=== PATIENT | male | born 1940 | race Caucasian/White ===

== ENCOUNTER → 2021-03-26 | Outpatient (CLI) | payer MEDICARE | END | disposition home or self-care (01) | DX: E78.2 Mixed hyperlipidemia (principal) ==

== ENCOUNTER 2021-11-07 19:37 | Inpatient (IN) | payer MEDICARE ==
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
[2021-11-07 21:28] LABS: Basophils # (A) 0.1 k/uL (0-0.2); Basophils % (A) 1 %; Eosinophils # (A) 0.1 k/uL (0-0.7); Eosinophils % (A) 1 %; HGB 16.7 gm/dL (13.0-17.5); Lymphocytes % (A) 15 %; MCH 31.6 pg (25.0-35.0); MCHC 33.5 g/dL (31.0-37.0); MCV 94.4 fL (80.0-100.0); Mean Platelet Volume 7.7; Monocytes # (A) 0.6 k/uL (0-1.0); Monocytes % (A) 8 %; Neutrophils # (A) 5.1 k/uL (1.3-7.7); Neutrophils % (A) 73 %; Platelet Count 336 k/uL (150-450); RBC 5.29 m/uL (4.30-5.90); RDW 12.4 % (11.5-15.5)
[2021-11-07 21:44] LABS: Albumin 4.2 g/dL (3.5-5.0); C Reactive Protein 8.8 mg/dL (<1.0); Calcium 9.4 mg/dL (8.4-10.2); Total Bilirubin 1.1 mg/dL (0.2-1.3); Total Protein 8.5 g/dL (6.3-8.2)
--- NOTE | 2021-11-07 21:49 | XR ---
EXAMINATION TYPE: XR chest 1V portable DATE OF EXAM: 11/07/2021 COMPARISON: NONE HISTORY: Shortness of breath. TECHNIQUE: Single frontal view of the chest is obtained. FINDINGS: . Bilateral diffuse moderate patchy airspace opacities. No pleural effusion, or pneumothor ax seen. The cardiac silhouette size is enlarged. CABG and left pacemaker seen. The osseous struct ures are intact. IMPRESSION: Bilateral infiltrates.
[2021-11-07 21:50] LABS: Magnesium 2.7 mg/dL (1.6-2.3); Potassium 4.6 mmol/L (3.5-5.1)
[2021-11-07] MEDS ORDERED: NALOXONE 0.4 MG/ML 1 ML VIAL IV PRN (21:55)
[2021-11-07] MEDS ORDERED: SODIUM CHLORIDE 0.9% 500 ML 500 ML IV ONE (22:02)
[2021-11-07 22:06] LABS: Partial Thromboplastin Time 24.5 sec (22.0-30.0); Prothrombin Time 10.5 sec (9.0-12.0)
[2021-11-07] MEDS ORDERED: ENOXAPARIN 100 MG/ML SYRINGE SQ STA (22:11)
[2021-11-07] MEDS: SODIUM CHLORIDE 0.9% 1,000 ML IV SCH (22:54)
--- NOTE | 2021-11-08 01:06 | US ---
EXAMINATION TYPE: US venous doppler duplex LE DATE OF EXAM: 11/08/2021 12:48 AM COMPARISON: NONE CLINICAL HISTORY: leg swelling. Patient states he has had blood clots in the past. Bilateral leg swel ling SIDE PERFORMED: Bilateral TECHNIQUE: The lower extremity deep venous system is examined utilizing real time linear array sonog socorro with graded compression, doppler sonography and color-flow sonography. VESSELS IMAGED: Common Femoral Vein Deep Femoral Vein Greater Saphenous Vein * Femoral Vein Popliteal Vein Small Saphenous Vein * Proximal Calf Veins (* superficial vessels) Right Leg: Negative for DVT Left Leg: There appears to be thrombus within the left mid portion of the popliteal vein. IMPRESSION: No evidence of deep vein thrombosis in the right leg. 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
[2021-11-08 07:19] LABS: Glucose,Whole Blood 89 mg/dL (75-99)
[2021-11-08 09:08] LABS: Basophils # (A) 0.03 X 10*3/uL (0.00-0.10); Basophils % (A) 0.4 %; Eosinophils % (A) 1.2 %; HCT 44.2 % (39.6-50.0); HGB 14.7 g/dL (13.0-17.0); Immature Grans, Automated 1.1 %; Lymphocytes # (A) 1.26 X 10*3/uL (0.90-5.00); Lymphocytes % (A) 14.8 %; MCHC 33.3 g/dL (32.0-37.0); MCV 93.2 fL (80.0-97.0); Monocytes # (A) 1.07 X 10*3/uL (0.20-1.00); Monocytes % (A) 12.5 %; NRBC Per 100 WBC 0 /100 WBCS (0.0-0.0); Neutrophils # (A) 5.98 X 10*3/uL (1.80-7.70); Platelet Count 316 X 10*3/uL (140-440); RBC 4.74 X 10*6/uL (4.40-5.60); WBC 8.53 X 10*3/uL (4.50-10.00)
[2021-11-08 09:28] LABS: Albumin 3.3 g/dL (3.8-4.9); Albumin/Globulin Ratio 1.06 (1.60-3.17); Bilirubin, Conjugated 0.21 mg/dL (0.20-0.40); Bilirubin,Unconjugated 0.19 mg/dL (0.20-1.00); C Reactive Protein 10.5 mg/dL (0.00-0.80); Globulin 3.1 g/dL (1.6-3.3); Total Bilirubin 0.4 mg/dL (0.30-1.20); Total Protein 6.4 g/dL (6.2-8.2)
[2021-11-08 09:29] LABS: Anion Gap 14.4 mmol/L (10.00-18.00); BUN/Creat Ratio 32.33 Ratio (12.00-20.00); Blood Urea Nitrogen 58.2 mg/dL (9.0-27.0); Calcium 8.5 mg/dL (8.7-10.3); Carbon Dioxide 19.6 mmol/L (20.0-27.5); Magnesium 2.7 mg/dL (1.5-2.4); Non-African American GFR(CKD) 34.5 (60.0-200.0); Potassium 4.3 mmol/L (3.5-5.5)
[2021-11-08] MEDS: DEXAMETHASONE SOD PHOSPHATE 10 MG/ML 1 ML VIAL IVP SCH (10:05)
[2021-11-08] MEDS: APIXABAN 5 MG TAB PO SCH ×2 (10:33→20:15)
[2021-11-08] MEDS: ASCORBIC ACID 500 MG TAB PO SCH (10:33)
[2021-11-08] MEDS: ZINC SULFATE 220 MG CAP PO SCH (10:33)
[2021-11-08] MEDS: CHOLECALCIFEROL 25 MCG (1000 IU) TABLET PO SCH (10:33)
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
[2021-11-08] MEDS: SODIUM CHLORIDE 0.9% 1,000 ML IV SCH ×2 (13:43→20:16)
[2021-11-08] MEDS: METOPROLOL SUCCINATE (ER) 50 MG TAB.ER.24H PO SCH (20:15)
[2021-11-08] MEDS ORDERED: lisinopriL 10 MG TAB PO SCH (21:30)
[2021-11-09] MEDS: ASCORBIC ACID 500 MG TAB PO SCH (09:14)
[2021-11-09] MEDS: ZINC SULFATE 220 MG CAP PO SCH (09:14)
[2021-11-09] MEDS: CHOLECALCIFEROL 25 MCG (1000 IU) TABLET PO SCH (09:14)
[2021-11-09] MEDS: APIXABAN 5 MG TAB PO SCH ×2 (09:14→21:31)
[2021-11-09] MEDS: DEXAMETHASONE SOD PHOSPHATE 10 MG/ML 1 ML VIAL IVP SCH (09:14)
[2021-11-09 09:51] LABS: African American GFR (CKD) 54.2 (60.0-200.0); Albumin 3.4 g/dL (3.8-4.9); Anion Gap 14.4 mmol/L (10.00-18.00); BUN/Creat Ratio 32.64 Ratio (12.00-20.00); Blood Urea Nitrogen 45.7 mg/dL (9.0-27.0); Calcium 9.2 mg/dL (8.7-10.3); Carbon Dioxide 18.6 mmol/L (20.0-27.5); Globulin 3.4 g/dL (1.6-3.3); Magnesium 2.6 mg/dL (1.5-2.4); Non-African American GFR(CKD) 46.8 (60.0-200.0); Potassium 4.4 mmol/L (3.5-5.5); Total Bilirubin 0.4 mg/dL (0.30-1.20); Total Protein 6.8 g/dL (6.2-8.2)
--- NOTE | 2021-11-09 10:50 | P.PN ---
Subjective Progress Note Date: 11/09/21 Principal diagnosis: COVID-19 pneumonia This is an 81-year-old gentleman who is extremely hard of hearing. He has a history of hypertension, hyperlipidemia, permanent pacemaker implantation, previous open heart surgery. He also has a three-week history of nausea, vomiting, generalized weakness and shortness of breath. His oxygen saturations dropped to 81-85% on room air while at home. He presented here to the emergency room for the same. Chest x-ray shows bilateral diffuse moderate patchy airspace opacities. No pleural effusion. No pneumothorax. EKG reveals a paced rhythm. Doppler lower extremity revealed thrombus in the left midportion popliteal vein. White count 8.5. Hemoglobin 14.7. Platelets 316. D-dimer 3.6. Lymphocytes 1.26. Sodium 138. Potassium 4.3. Creatinine 1.8. GFR 34.5. BUN 58. Magnesium 2.7. AST 170. ALT 144. LDH 420. C-reactive protein 10.5. Pro- calcitonin 0.18. The patient is seen today in consultation on the regular medical floor. He is up ambulating in his room. Awake and alert in no acute distress. He is requiring 2 L/m per nasal cannula. He's been afebrile. Hemodynamically stable. He's been initiated on vitamin supplements. The patient is seen today for 2021 in follow-up on the regular medical floor. He is currently resting comfortably in bed. Awake and alert in no acute distress. He is maintaining O2 saturation in the low 90s on 4 L high flow nasal cannula. He's been afebrile. Hemodynamically stable. Sodium 138. Potassium 4.4. The 146. Creatinine 1.4. Glucose 117. AST 150. ALT 183. He remains on Eliquis, Decadron, vitamin supplements. Objective - Vital Signs Vital signs: Vital Signs Temp 97.5 F L 11/09/21 10:00 Pulse 66 11/09/21 10:00 Resp 18 11/09/21 10:00 BP 125/78 11/09/21 10:00 Pulse Ox 92 L 11/09/21 10:00 Intake & Output 11/08/21 11/09/21 11/09/21 18:59 06:59 18:59 Intake Total 400 Balance 400 Intake: Oral 400 Other: # Voids 4 - Exam GENERAL EXAM: Alert, extremely hard of hearing, 81-year-old male patient, on 4 L nasal cannula, comfortable in no apparent distress. HEAD: Normocephalic. EYES: Normal reaction of pupils, equal size. NOSE: Clear with pink turbinates. THROAT: No erythema or exudates. NECK: No masses, no JVD. CHEST: No chest wall deformity. LUNGS: Equal air entry with crackles in the bilateral bases. CVS: S1 and S2 normal with no audible murmur, regular paced rhythm. ABDOMEN: No hepatosplenomegaly, normal bowel sounds, no guarding or rigidity. SPINE: No scoliosis or deformity SKIN: No rashes CENTRAL NERVOUS SYSTEM: No focal deficits, tone is normal in all 4 extremities. EXTREMITIES: There is no peripheral edema. No clubbing, no cyanosis. Peripheral pulses are intact. - Labs CBC & Chem 7: 11/08/21 05:15 11/09/21 05:25 Labs: Abnormal Lab Results - Last 24 Hours (Table) 11/09/21 Range/Units 05:25 Carbon Dioxide 18.6 L (20.0-27.5) mmol/L BUN 45.7 H (9.0-27.0) mg/dL Est GFR (CKD-EPI)AfAm 54.2 L (60.0-200.0) Est GFR (CKD-EPI)NonAf 46.8 L (60.0-200.0) BUN/Creatinine Ratio 32.64 H (12.00-20.00) Ratio Glucose 117 H (70-110) mg/dL Magnesium 2.6 H (1.5-2.4) mg/dL AST 150 H (14-35) U/L ALT 183 H (10-49) U/L Albumin 3.4 L (3.8-4.9) g/dL Globulin 3.4 H (1.6-3.3) g/dL Albumin/Globulin Ratio 1.00 L (1.60-3.17) g/dL Assessment and Plan Assessment: 1 Acute hypoxic respiratory failure secondary to acute COVID-19 pneumonia. Not vaccinated. Outside the window for Remdesivir. Not qualifying for Baricitinib. 2 Acute left lower extremity DVT, suspect secondary to above, initiated on Eliquis 3 Transaminitis suspect secondary to CoVID infection 4 Acute renal failure suspect secondary to dehydration and is 5 Elevated inflammatory markers secondary to COVID-19 infection is 6 Hypertension 7 History of open heart surgery, details are not available 8 Permanent pacemaker implantation 9 Hyperlipidemia Plan: The patient was seen and evaluated Labs reviewed Anticoagulated with Eliquis Continue Decadron, vitamin supplements Titrate the FiO2 as tolerated Follow-up chest x-ray and labs in a.m. Possibly home in the a.m. May need home oxygen We'll continue to follow I, the cosigning physician, performed a history & physical examination of the patient. Lungs sounds with coarse crackles in the bilateral bases. Maintaining O2 saturations in the 90s on 4 L/m per nasal cannula. I discussed the assessment and plan of care with my nurse practitioner, Hannah Marcelino. I attest to the above note as dictated by her. I have personally seen and examined the patient, performed the documentation and the assessment and plan as written. Number of minutes spent on the visit: 10.
--- NOTE | 2021-11-09 12:15 | P.PN ---
Subjective This is a pleasant 81 years old male with past medical history of hypertension Presents because of dyspnea. Patient states for the last 3 weeks he has nausea with little vomiting but with diarrhea as well He is been coughing a lot no lid try and Last week he starts feeling really week. The last 2 days and yesterday he was noticed that his pulse ox. In this coming low less than 89 and this morning was 81-82% so he decided to come to emergency room. He denies chest pain, no headache or weakness or numbness He denies smoking, alcohol or illicit drugs Patient on the presentation is hypoxic with oxygen saturation 88% on room air and 92% on 2 L oxygen, tachypneic 20-22, afebrile. Left showing unremarkable CBC, INR D-dimer elevated 3.6 Creatinine elevated 2.0 Dear enzymes mildly elevated with AST 234 and ALT 154, bilirubin is normal 1.1 CRP is elevated 8.8, Coronavirus detected Chest x-ray: Bilateral infiltrate and patchy opacities EKG paced rhythm 11/09/2021 Patient sitting in chair not in respiratory distress, no chest pain or dyspnea while at rest. His oxygen requirements today went up to 4 L/m with saturation 92%. Labs today showing creatinine improved 1.4, liver enzymes trending down, Patient remains on Eliquis 10 mg started yesterday after Doppler of the leg came back positive for left DVT. Also on dexamethasone 6 mg daily, multiple vitamins, we going to lower the fluid to 40-50 L per minute. Objective - Vital Signs Vital signs: Vital Signs Temp 97.5 F L 11/09/21 10:00 Pulse 66 11/09/21 10:00 Resp 18 11/09/21 10:00 BP 125/78 11/09/21 10:00 Pulse Ox 92 L 11/09/21 10:00 Intake & Output 11/08/21 11/09/21 11/09/21 18:59 06:59 18:59 Intake Total 400 Balance 400 Intake: Oral 400 Other: # Voids 4 - Exam GENERAL: The patient is alert and oriented x3, not in any acute distress. Well developed, well nourished. HEENT: Pupils are round and equally reacting to light. EOMI. No scleral icterus. No conjunctival pallor. Normocephalic, atraumatic. No pharyngeal erythema. No thyromegaly. CARDIOVASCULAR: S1 and S2 present. No murmurs, rubs, or gallops. PULMONARY: Chest is clear to auscultation, no wheezing or crackles. ABDOMEN: Soft, nontender, nondistended, normoactive bowel sounds. No palpable organomegaly. MUSCULOSKELETAL: No joint swelling or deformity. EXTREMITIES: No cyanosis, clubbing, or pedal edema. NEUROLOGICAL: Gross neurological examination did not reveal any focal deficits. SKIN: No rashes. no petechiae. - Labs CBC & Chem 7: 11/08/21 05:15 11/09/21 05:25 Labs: Abnormal Lab Results - Last 24 Hours (Table) 11/09/21 Range/Units 05:25 Carbon Dioxide 18.6 L (20.0-27.5) mmol/L BUN 45.7 H (9.0-27.0) mg/dL Est GFR (CKD-EPI)AfAm 54.2 L (60.0-200.0) Est GFR (CKD-EPI)NonAf 46.8 L (60.0-200.0) BUN/Creatinine Ratio 32.64 H (12.00-20.00) Ratio Glucose 117 H (70-110) mg/dL Magnesium 2.6 H (1.5-2.4) mg/dL AST 150 H (14-35) U/L ALT 183 H (10-49) U/L Albumin 3.4 L (3.8-4.9) g/dL Globulin 3.4 H (1.6-3.3) g/dL Albumin/Globulin Ratio 1.00 L (1.60-3.17) g/dL Assessment and Plan Assessment: Bilateral Covid pneumonia Acute hypoxic respiratory failure Increased inflammatory markers Acute left leg DVT Hypertension Acute kidney injury Elevated d-dimer Plan: This is a pleasant 81 years old male who presents with covid pneumonia Continue with dexamethasone Continue with vitamin C, vitamin D and zinc Pulmonary consult she is on Eliquis therapeutic dose 10 mg twice a day hold lisinopril, continue with IV fluid, check urine analysis and the bladder scan Check Doppler of the lower extremity Labs and medication were reviewed.. Continue same treatment. Continue with symptomatic treatment. Resume home medication. Monitor lytes and vitals. DVT and GI prophylaxis. Further recommendations as per clinical course of the patient DVT prophylaxis: Eliquis GI Prophylaxis: Pepcid PT/OT: Pending Prognosis is guarded
[2021-11-09] MEDS: SODIUM CHLORIDE 0.9% 1,000 ML IV SCH (14:49)
[2021-11-09] MEDS: METOPROLOL SUCCINATE (ER) 50 MG TAB.ER.24H PO SCH (21:30)
[2021-11-10] MEDS: APIXABAN 5 MG TAB PO SCH ×2 (08:19→21:15)
[2021-11-10] MEDS: ASCORBIC ACID 500 MG TAB PO SCH (08:19)
[2021-11-10] MEDS: CHOLECALCIFEROL 25 MCG (1000 IU) TABLET PO SCH (08:19)
[2021-11-10] MEDS: DEXAMETHASONE SOD PHOSPHATE 10 MG/ML 1 ML VIAL IVP SCH (08:19)
[2021-11-10] MEDS: ZINC SULFATE 220 MG CAP PO SCH (08:19)
--- NOTE | 2021-11-10 08:23 | XR ---
EXAMINATION TYPE: XR chest 1V portable DATE OF EXAM: 11/10/2021 COMPARISON: Chest x-ray 11/07/2021 HISTORY: Covid pneumonia TECHNIQUE: Single frontal view of the chest is obtained. FINDINGS: Patient is post median sternotomy. Generators present in the left pectoral region, there a re leads in the right atrium and ventricle. Retrocardiac lucency is consistent with hiatal hernia wit h partial intrathoracic stomach. No evident pneumothorax or pleural effusion. Patchy density is prese nt in the bilateral lungs. There is some improvement in aeration, lung volume. Bones are unchanged. C ardiac mediastinal silhouette is stable. Patient is rotated. IMPRESSION: Correlate for pneumonia, follow-up recommended
--- NOTE | 2021-11-10 11:32 | P.PN ---
Subjective Progress Note Date: 11/10/21 Principal diagnosis: COVID-19 pneumonia This is an 81-year-old gentleman who is extremely hard of hearing. He has a history of hypertension, hyperlipidemia, permanent pacemaker implantation, previous open heart surgery. He also has a three-week history of nausea, vomiting, generalized weakness and shortness of breath. His oxygen saturations dropped to 81-85% on room air while at home. He presented here to the emergency room for the same. Chest x-ray shows bilateral diffuse moderate patchy airspace opacities. No pleural effusion. No pneumothorax. EKG reveals a paced rhythm. Doppler lower extremity revealed thrombus in the left midportion popliteal vein. White count 8.5. Hemoglobin 14.7. Platelets 316. D-dimer 3.6. Lymphocytes 1.26. Sodium 138. Potassium 4.3. Creatinine 1.8. GFR 34.5. BUN 58. Magnesium 2.7. AST 170. ALT 144. LDH 420. C-reactive protein 10.5. Pro- calcitonin 0.18. The patient is seen today in consultation on the regular medical floor. He is up ambulating in his room. Awake and alert in no acute distress. He is requiring 2 L/m per nasal cannula. He's been afebrile. Hemodynamically stable. He's been initiated on vitamin supplements. The patient is seen today for 2021 in follow-up on the regular medical floor. He is currently resting comfortably in bed. Awake and alert in no acute distress. He is maintaining O2 saturation in the low 90s on 4 L high flow nasal cannula. He's been afebrile. Hemodynamically stable. Sodium 138. Potassium 4.4. The 146. Creatinine 1.4. Glucose 117. AST 150. ALT 183. He remains on Eliquis, Decadron, vitamin supplements. The patient is seen today 11/10/2021 in follow-up on the regular medical floor. He is currently sitting up in a chair at bedside. Awake and alert in no acute distress. He is quite hard of hearing. He does admit to breathing easier today. He is feeling quite a bit better. He is maintaining O2 saturations between 89 and 90% on 5 L high flow nasal cannula. He's been afebrile. Hemodynamically stable. Chest x-ray continues to show patchy densities bilaterally. There is some improvement in aeration and lung volume. Retrocardiac lucency is consistent with hiatal hernia with partial intrathoracic stomach. No evidence of pneumothorax or pleural effusions. He is continued on Decadron, Eliquis, vitamin supplements. Objective - Vital Signs Vital signs: Vital Signs Temp 97.9 F 11/10/21 10:00 Pulse 68 11/10/21 10:00 Resp 18 11/10/21 10:00 BP 153/88 11/10/21 10:00 Pulse Ox 89 L 11/10/21 10:00 Intake & Output 11/09/21 11/10/21 11/10/21 18:59 06:59 18:59 Intake Total 320 320 Balance 320 320 Intake: Intake, IV Titration 320 320 Amount Sodium Chloride 0.9% 1, 320 320 000 ml @ 40 mls/hr IV . Q24H [facility] Rx#:[id number] Other: Voiding Method Toilet Urinal # Voids 2 - Exam GENERAL EXAM: Alert, extremely hard of hearing, 81-year-old male patient, on 5 L nasal cannula, comfortable in no apparent distress. HEAD: Normocephalic. EYES: Normal reaction of pupils, equal size. NOSE: Clear with pink turbinates. THROAT: No erythema or exudates. NECK: No masses, no JVD. CHEST: No chest wall deformity. LUNGS: Equal air entry with crackles in the bilateral bases. CVS: S1 and S2 normal with no audible murmur, regular paced rhythm. ABDOMEN: No hepatosplenomegaly, normal bowel sounds, no guarding or rigidity. SPINE: No scoliosis or deformity SKIN: No rashes CENTRAL NERVOUS SYSTEM: No focal deficits, tone is normal in all 4 extremities. EXTREMITIES: There is no peripheral edema. No clubbing, no cyanosis. Peripheral pulses are intact. - Labs CBC & Chem 7: 11/08/21 05:15 11/09/21 05:25 Assessment and Plan Assessment: 1 Acute hypoxic respiratory failure secondary to acute COVID-19 pneumonia. Not vaccinated. Outside the window for Remdesivir. Not qualifying for Baricitinib. 2 Acute left lower extremity DVT, suspect secondary to above, initiated on Eliq uis 3 Transaminitis suspect secondary to CoVID infection 4 Acute renal failure suspect secondary to dehydration and is 5 Elevated inflammatory markers secondary to COVID-19 infection is 6 Hypertension 7 History of open heart surgery, details are not available 8 Permanent pacemaker implantation 9 Hyperlipidemia Plan: The patient was seen and evaluated Chest x-ray reviewed, showing some improvement Stable and on 5 L nasal cannula Anticoagulated with Eliquis Continue Decadron, vitamin supplements Titrate the FiO2 as tolerated Will need home oxygen We'll continue to follow I, the cosigning physician, performed a history & physical examination of the patient. Lungs sounds with coarse crackles in the bilateral bases. Maintaining O2 saturations in the 90s on 5 L/m per nasal cannula. I discussed the assessment and plan of care with my nurse practitioner, Hannah Marcelino. I attest to the above note as dictated by her. I have personally seen and examined the patient, performed the documentation and the assessment and plan as written. Number of minutes spent on the visit: 10.
--- NOTE | 2021-11-10 12:01 | P.PN ---
Subjective This is a pleasant 81 years old male with past medical history of hypertension Presents because of dyspnea. Patient states for the last 3 weeks he has nausea with little vomiting but with diarrhea as well He is been coughing a lot no lid try and Last week he starts feeling really week. The last 2 days and yesterday he was noticed that his pulse ox. In this coming low less than 89 and this morning was 81-82% so he decided to come to emergency room. He denies chest pain, no headache or weakness or numbness He denies smoking, alcohol or illicit drugs Patient on the presentation is hypoxic with oxygen saturation 88% on room air and 92% on 2 L oxygen, tachypneic 20-22, afebrile. Left showing unremarkable CBC, INR D-dimer elevated 3.6 Creatinine elevated 2.0 Dear enzymes mildly elevated with AST 234 and ALT 154, bilirubin is normal 1.1 CRP is elevated 8.8, Coronavirus detected Chest x-ray: Bilateral infiltrate and patchy opacities EKG paced rhythm 11/09/2021 Patient sitting in chair not in respiratory distress, no chest pain or dyspnea while at rest. His oxygen requirements today went up to 4 L/m with saturation 92%. Labs today showing creatinine improved 1.4, liver enzymes trending down, Patient remains on Eliquis 10 mg started yesterday after Doppler of the leg came back positive for left DVT. Also on dexamethasone 6 mg daily, multiple vitamins, we going to lower the fluid to 40-50 L per minute. 11/10/2021 Genital bit tired today. He is eating well, his vitals are stable, he requires 5 L per minute of oxygen to keep saturation 90-92%. Chest x-ray showing pneumonia. With some improvement Remains on dexamethasone, Eliquis 10 mg, multiple vitamins and he was on normal saline at 40 mL/h which is stopped today. Objective - Vital Signs Vital signs: Vital Signs Temp 97.9 F 11/10/21 10:00 Pulse 68 11/10/21 10:00 Resp 18 11/10/21 10:00 BP 153/88 11/10/21 10:00 Pulse Ox 89 L 11/10/21 10:00 Intake & Output 11/09/21 11/10/21 11/10/21 18:59 06:59 18:59 Intake Total 320 320 Balance 320 320 Intake: Intake, IV Titration 320 320 Amount Sodium Chloride 0.9% 1, 320 320 000 ml @ 40 mls/hr IV . Q24H [facility] Rx#:[id number] Other: Voiding Method Toilet Urinal # Voids 2 - Exam GENERAL: The patient is alert and oriented x3, not in any acute distress. Well developed, well nourished. HEENT: Pupils are round and equally reacting to light. EOMI. No scleral icterus. No conjunctival pallor. Normocephalic, atraumatic. No pharyngeal erythema. No thyromegaly. CARDIOVASCULAR: S1 and S2 present. No murmurs, rubs, or gallops. PULMONARY: Chest is clear to auscultation, no wheezing or crackles. ABDOMEN: Soft, nontender, nondistended, normoactive bowel sounds. No palpable organomegaly. MUSCULOSKELETAL: No joint swelling or deformity. EXTREMITIES: No cyanosis, clubbing, or pedal edema. NEUROLOGICAL: Gross neurological examination did not reveal any focal deficits. SKIN: No rashes. no petechiae. - Labs CBC & Chem 7: 11/08/21 05:15 11/09/21 05:25 Assessment and Plan Assessment: Bilateral Covid pneumonia Acute hypoxic respiratory failure Increased inflammatory markers Acute left leg DVT Hypertension Acute kidney injury Elevated d-dimer Plan: This is a pleasant 81 years old male who presents with covid pneumonia Continue with dexamethasone Continue with vitamin C, vitamin D and zinc Pulmonary consult she is on Eliquis therapeutic dose 10 mg twice a day hold lisinopril, continue with IV fluid, check urine analysis and the bladder scan Check Doppler of the lower extremity Labs and medication were reviewed.. Continue same treatment. Continue with symptomatic treatment. Resume home medication. Monitor lytes and vitals. DVT and GI prophylaxis. Further recommendations as per clinical course of the patient DVT prophylaxis: Eliquis GI Prophylaxis: Pepcid PT/OT: Pending Prognosis is guarded
[2021-11-10] MEDS: METOPROLOL SUCCINATE (ER) 50 MG TAB.ER.24H PO SCH (21:15)
[2021-11-11] MEDS: DEXAMETHASONE SOD PHOSPHATE 10 MG/ML 1 ML VIAL IVP SCH (08:27)
[2021-11-11] MEDS: ZINC SULFATE 220 MG CAP PO SCH (09:46)
[2021-11-11] MEDS: CHOLECALCIFEROL 25 MCG (1000 IU) TABLET PO SCH (09:46)
[2021-11-11] MEDS: ASCORBIC ACID 500 MG TAB PO SCH (09:46)
[2021-11-11] MEDS: APIXABAN 5 MG TAB PO SCH ×2 (09:46→22:49)
[2021-11-11 10:13] LABS: African American GFR (CKD) 59.3 (60.0-200.0); BUN/Creat Ratio 29.15 Ratio (12.00-20.00); Blood Urea Nitrogen 37.9 mg/dL (9.0-27.0); Calcium 9.2 mg/dL (8.7-10.3); Non-African American GFR(CKD) 51.2 (60.0-200.0); Potassium 4.6 mmol/L (3.5-5.5)
--- NOTE | 2021-11-11 13:50 | P.PN ---
<Ryland,Hannah - Last Filed: 11/11/21 13:46> Subjective Progress Note Date: 11/11/21 Principal diagnosis: COVID-19 pneumonia This is an 81-year-old gentleman who is extremely hard of hearing. He has a history of hypertension, hyperlipidemia, permanent pacemaker implantation, previous open heart surgery. He also has a three-week history of nausea, vomiting, generalized weakness and shortness of breath. His oxygen saturations dropped to 81-85% on room air while at home. He presented here to the emergency room for the same. Chest x-ray shows bilateral diffuse moderate patchy airspace opacities. No pleural effusion. No pneumothorax. EKG reveals a paced rhythm. Doppler lower extremity revealed thrombus in the left midportion popliteal vein. White count 8.5. Hemoglobin 14.7. Platelets 316. D-dimer 3.6. Lymphocytes 1.26. Sodium 138. Potassium 4.3. Creatinine 1.8. GFR 34.5. BUN 58. Magnesium 2.7. AST 170. ALT 144. LDH 420. C-reactive protein 10.5. Pro- calcitonin 0.18. The patient is seen today in consultation on the regular medical floor. He is up ambulating in his room. Awake and alert in no acute distress. He is requiring 2 L/m per nasal cannula. He's been afebrile. Hemodynamically stable. He's been initiated on vitamin supplements. The patient is seen today for 2021 in follow-up on the regular medical floor. He is currently resting comfortably in bed. Awake and alert in no acute distress. He is maintaining O2 saturation in the low 90s on 4 L high flow nasal cannula. He's been afebrile. Hemodynamically stable. Sodium 138. Potassium 4.4. The 146. Creatinine 1.4. Glucose 117. AST 150. ALT 183. He remains on Eliquis, Decadron, vitamin supplements. The patient is seen today 11/10/2021 in follow-up on the regular medical floor. He is currently sitting up in a chair at bedside. Awake and alert in no acute distress. He is quite hard of hearing. He does admit to breathing easier today. He is feeling quite a bit better. He is maintaining O2 saturations between 89 and 90% on 5 L high flow nasal cannula. He's been afebrile. Hemodynamically stable. Chest x-ray continues to show patchy densities bilaterally. There is some improvement in aeration and lung volume. Retrocardiac lucency is consistent with hiatal hernia with partial intrathoracic stomach. No evidence of pneumothorax or pleural effusions. He is continued on Decadron, Eliquis, vitamin supplements. The patient is seen today 11/11/2021 in follow-up on the regular medical floor. He is awake and alert in no acute distress. Sitting up in a chair at the bedside. Breathing easier today compared to yesterday. He has a dry nonproductive cough. No fever or chills. Maintaining O2 saturation in the low 90s on 5 L/m per nasal cannula. He's been afebrile. Sodium 143. Potassium 4.6. BUN 38. Creatinine 1.3. He remains on Decadron, vitamin supplements, Eliquis. Objective - Vital Signs Vital signs: Vital Signs Temp 97.8 F 11/11/21 09:41 Pulse 63 11/11/21 09:41 Resp 19 11/11/21 09:41 BP 150/89 11/11/21 09:41 Pulse Ox 91 L 11/11/21 09:41 Intake & Output 11/10/21 11/11/21 11/11/21 18:59 06:59 18:59 Intake Total 320 1500 180 Balance 320 1500 180 Intake: Intake, IV Titration 320 Amount Sodium Chloride 0.9% 1, 320 000 ml @ 40 mls/hr IV . Q24H [facility] Rx#:[id number] Oral 1500 180 Other: Voiding Method Toilet Urinal # Voids 2 - Exam GENERAL EXAM: Alert, extremely hard of hearing, 81-year-old male patient, on 5 L nasal cannula, comfortable in no apparent distress. HEAD: Normocephalic. EYES: Normal reaction of pupils, equal size. NOSE: Clear with pink turbinates. THROAT: No erythema or exudates. NECK: No masses, no JVD. CHEST: No chest wall deformity. LUNGS: Equal air entry with crackles in the bilateral bases. CVS: S1 and S2 normal with no audible murmur, regular paced rhythm. ABDOMEN: No hepatosplenomegaly, normal bowel sounds, no guarding or rigidity. SPINE: No scoliosis or deformity SKIN: No rashes CENTRAL NERVOUS SYSTEM: No focal deficits, tone is normal in all 4 extremities. EXTREMITIES: There is no peripheral edema. No clubbing, no cyanosis. Peripheral pulses are intact. - Labs CBC & Chem 7: 11/08/21 05:15 11/11/21 06:59 Labs: Abnormal Lab Results - Last 24 Hours (Table) 11/11/21 Range/Units 06:59 BUN 37.9 H (9.0-27.0) mg/dL Est GFR (CKD-EPI)AfAm 59.3 L (60.0-200.0) Est GFR (CKD-EPI)NonAf 51.2 L (60.0-200.0) BUN/Creatinine Ratio 29.15 H (12.00-20.00) Ratio Assessment and Plan Assessment: 1 Acute hypoxic respiratory failure secondary to acute COVID-19 pneumonia. Not vaccinated. Outside the window for Remdesivir. Not qualifying for Baricitinib. 2 Acute left lower extremity DVT, suspect secondary to above, initiated on Eliquis 3 Transaminitis suspect secondary to CoVID infection 4 Acute renal failure suspect secondary to dehydration and is 5 Elevated inflammatory markers secondary to COVID-19 infection is 6 Hypertension 7 History of open heart surgery, details are not available 8 Permanent pacemaker implantation 9 Hyperlipidemia Plan: The patient was seen and evaluated Stable and on 5 L nasal cannula Anticoagulated with Eliquis Continue Decadron, vitamin supplements Titrate the FiO2 as tolerated Will need home oxygen Follow-up x-ray in a.m. We'll continue to follow I, the cosigning physician, performed a history & physical examination of the patient. Lungs sounds with coarse crackles in the bilateral bases. Maintaining O2 saturations in the 90s on 5 L/m per nasal cannula. I discussed the assessment and plan of care with my nurse practitioner, Hannah Marcelino. I attest to the above note as dictated by her. I have personally seen and examined the patient, performed the documentation and the assessment and plan as written. Number of minutes spent on the visit: 10. <Anish Lopez - Last Filed: 11/11/21 19:13> Objective - Vital Signs Vital signs: Vital Signs Temp 97.4 F L 11/11/21 18:26 Pulse 57 L 11/11/21 18:26 Resp 17 11/11/21 18:26 BP 147/79 11/11/21 18:26 Pulse Ox 94 L 11/11/21 18:26 Intake & Output 11/11/21 11/11/21 11/12/21 06:59 18:59 06:59 Intake Total 1500 180 Balance 1500 180 Intake: Oral 1500 180 Other: Voiding Method Toilet Urinal # Voids 2 5 # Bowel Movements 2 - Labs CBC & Chem 7: 11/08/21 05:15 11/11/21 06:59 Labs: Abnormal Lab Results - Last 24 Hours (Table) 11/11/21 Range/Units 06:59 BUN 37.9 H (9.0-27.0) mg/dL Est GFR (CKD-EPI)AfAm 59.3 L (60.0-200.0) Est GFR (CKD-EPI)NonAf 51.2 L (60.0-200.0) BUN/Creatinine Ratio 29.15 H (12.00-20.00) Ratio Assessment and Plan Assessment: This is a joint evaluation that was done along with the nurse practitioner's and this evaluation was done and more than 20 minutes. The patient has Covid ventilator related pneumonia and the patient remains on steroids. The patient isn't a good with Eliquis. The patient is on Decadron. She is currently on 5 L about 2 by nasal cannula. She is doing well. No specific complaints. We'll titrate FiO2. With a sesame for home O2. Follow-up chest x-ray in a.m. We'll continue to follow.
--- NOTE | 2021-11-11 14:25 | P.PN ---
Subjective This is a pleasant 81 years old male with past medical history of hypertension Presents because of dyspnea. Patient states for the last 3 weeks he has nausea with little vomiting but with diarrhea as well He is been coughing a lot no lid try and Last week he starts feeling really week. The last 2 days and yesterday he was noticed that his pulse ox. In this coming low less than 89 and this morning was 81-82% so he decided to come to emergency room. He denies chest pain, no headache or weakness or numbness He denies smoking, alcohol or illicit drugs Patient on the presentation is hypoxic with oxygen saturation 88% on room air and 92% on 2 L oxygen, tachypneic 20-22, afebrile. Left showing unremarkable CBC, INR D-dimer elevated 3.6 Creatinine elevated 2.0 Dear enzymes mildly elevated with AST 234 and ALT 154, bilirubin is normal 1.1 CRP is elevated 8.8, Coronavirus detected Chest x-ray: Bilateral infiltrate and patchy opacities EKG paced rhythm 11/09/2021 Patient sitting in chair not in respiratory distress, no chest pain or dyspnea while at rest. His oxygen requirements today went up to 4 L/m with saturation 92%. Labs today showing creatinine improved 1.4, liver enzymes trending down, Patient remains on Eliquis 10 mg started yesterday after Doppler of the leg came back positive for left DVT. Also on dexamethasone 6 mg daily, multiple vitamins, we going to lower the fluid to 40-50 L per minute. 11/10/2021 Genital bit tired today. He is eating well, his vitals are stable, he requires 5 L per minute of oxygen to keep saturation 90-92%. Chest x-ray showing pneumonia. With some improvement Remains on dexamethasone, Eliquis 10 mg, multiple vitamins and he was on normal saline at 40 mL/h which is stopped today. 11/11/2021 Patient respiratory status and hypoxia is a stable on need of 5 L/m with saturation 94% better than yesterday 90%. Mildly tachypneic, coughing a lot. No much phlegm. No abdominal pain. No diarrhea. Hemodynamically stable. Creatinine is stable and improving slowly and gradually down to 1.3. Liver enzymes were trending down as well. Pulmonary team on the case and is currently With Eliquis for his recent DVT, dexamethasone, multiple vitamins while IV fluids were stopped. Possible discharge in 24-48 hours once he got occluded from pulmonary service Discussed with rn case management to provide oxygen at home upon discharge Objective - Vital Signs Vital signs: Vital Signs Temp 97.8 F 11/11/21 09:41 Pulse 63 11/11/21 09:41 Resp 19 11/11/21 09:41 BP 150/89 11/11/21 09:41 Pulse Ox 91 L 11/11/21 09:41 Intake & Output 11/10/21 11/11/21 11/11/21 18:59 06:59 18:59 Intake Total 320 1500 180 Balance 320 1500 180 Intake: Intake, IV Titration 320 Amount Sodium Chloride 0.9% 1, 320 000 ml @ 40 mls/hr IV . Q24H [facility] Rx#:[id number] Oral 1500 180 Other: Voiding Method Toilet Urinal # Voids 2 - Exam GENERAL: The patient is alert and oriented x3, not in any acute distress. Well developed, well nourished. HEENT: Pupils are round and equally reacting to light. EOMI. No scleral icterus. No conjunctival pallor. Normocephalic, atraumatic. No pharyngeal erythema. No thyromegaly. CARDIOVASCULAR: S1 and S2 present. No murmurs, rubs, or gallops. PULMONARY: Chest is clear to auscultation, no wheezing or crackles. ABDOMEN: Soft, nontender, nondistended, normoactive bowel sounds. No palpable organomegaly. MUSCULOSKELETAL: No joint swelling or deformity. EXTREMITIES: No cyanosis, clubbing, or pedal edema. NEUROLOGICAL: Gross neurological examination did not reveal any focal deficits. SKIN: No rashes. no petechiae. - Labs CBC & Chem 7: 11/08/21 05:15 11/11/21 06:59 Labs: Abnormal Lab Results - Last 24 Hours (Table) 11/11/21 Range/Units 06:59 BUN 37.9 H (9.0-27.0) mg/dL Est GFR (CKD-EPI)AfAm 59.3 L (60.0-200.0) Est GFR (CKD-EPI)NonAf 51.2 L (60.0-200.0) BUN/Creatinine Ratio 29.15 H (12.00-20.00) Ratio Assessment and Plan Assessment: Bilateral Covid pneumonia Acute hypoxic respiratory failure Increased inflammatory markers Acute left leg DVT Hypertension Acute kidney injury Elevated d-dimer Plan: This is a pleasant 81 years old male who presents with covid pneumonia Continue with dexamethasone Continue with vitamin C, vitamin D and zinc Pulmonary consult Keep patient on Eliquis therapeutic dose 10 mg twice a day hold lisinopril on admission due to worsening creatinine. We going to restarted at a lower dose instead of 30 mg of going to start 10 mgue same treatment. Continue with symptomatic treatment. Resume home medication. Monitor lytes and vitals. DVT and GI prophylaxis. Further recommendations as per clinical course of the patient DVT prophylaxis: Eliquis GI Prophylaxis: Pepcid PT/OT: home healthcare, ordered Prognosis is guarded
[2021-11-11] MEDS: lisinopriL 10 MG TAB PO SCH (14:43)
[2021-11-11] MEDS: METOPROLOL SUCCINATE (ER) 50 MG TAB.ER.24H PO SCH (22:50)
[2021-11-12] MEDS: ASCORBIC ACID 500 MG TAB PO SCH (07:58)
[2021-11-12] MEDS: lisinopriL 10 MG TAB PO SCH (07:58)
[2021-11-12] MEDS: APIXABAN 5 MG TAB PO SCH ×2 (07:58→19:53)
[2021-11-12] MEDS: ZINC SULFATE 220 MG CAP PO SCH (07:58)
[2021-11-12] MEDS: CHOLECALCIFEROL 25 MCG (1000 IU) TABLET PO SCH (07:58)
[2021-11-12] MEDS: DEXAMETHASONE SOD PHOSPHATE 10 MG/ML 1 ML VIAL IVP SCH (08:36)
[2021-11-12 09:16] LABS: African American GFR (CKD) 65.3 (60.0-200.0); Albumin 3.4 g/dL (3.8-4.9); BUN/Creat Ratio 28.33 Ratio (12.00-20.00); Globulin 3.4 g/dL (1.6-3.3); Non-African American GFR(CKD) 56.4 (60.0-200.0); Potassium 4.6 mmol/L (3.5-5.5); Total Bilirubin 0.4 mg/dL (0.30-1.20); Total Protein 6.8 g/dL (6.2-8.2)
--- NOTE | 2021-11-12 12:23 | P.PN ---
<Ryland,Hannah - Last Filed: 11/12/21 12:21> Subjective Progress Note Date: 11/12/21 Principal diagnosis: COVID-19 pneumonia This is an 81-year-old gentleman who is extremely hard of hearing. He has a history of hypertension, hyperlipidemia, permanent pacemaker implantation, previous open heart surgery. He also has a three-week history of nausea, vomiting, generalized weakness and shortness of breath. His oxygen saturations dropped to 81-85% on room air while at home. He presented here to the emergency room for the same. Chest x-ray shows bilateral diffuse moderate patchy airspace opacities. No pleural effusion. No pneumothorax. EKG reveals a paced rhythm. Doppler lower extremity revealed thrombus in the left midportion popliteal vein. White count 8.5. Hemoglobin 14.7. Platelets 316. D-dimer 3.6. Lymphocytes 1.26. Sodium 138. Potassium 4.3. Creatinine 1.8. GFR 34.5. BUN 58. Magnesium 2.7. AST 170. ALT 144. LDH 420. C-reactive protein 10.5. Pro- calcitonin 0.18. The patient is seen today in consultation on the regular medical floor. He is up ambulating in his room. Awake and alert in no acute distress. He is requiring 2 L/m per nasal cannula. He's been afebrile. Hemodynamically stable. He's been initiated on vitamin supplements. The patient is seen today for 2021 in follow-up on the regular medical floor. He is currently resting comfortably in bed. Awake and alert in no acute distress. He is maintaining O2 saturation in the low 90s on 4 L high flow nasal cannula. He's been afebrile. Hemodynamically stable. Sodium 138. Potassium 4.4. The 146. Creatinine 1.4. Glucose 117. AST 150. ALT 183. He remains on Eliquis, Decadron, vitamin supplements. The patient is seen today 11/10/2021 in follow-up on the regular medical floor. He is currently sitting up in a chair at bedside. Awake and alert in no acute distress. He is quite hard of hearing. He does admit to breathing easier today. He is feeling quite a bit better. He is maintaining O2 saturations between 89 and 90% on 5 L high flow nasal cannula. He's been afebrile. Hemodynamically stable. Chest x-ray continues to show patchy densities bilaterally. There is some improvement in aeration and lung volume. Retrocardiac lucency is consistent with hiatal hernia with partial intrathoracic stomach. No evidence of pneumothorax or pleural effusions. He is continued on Decadron, Eliquis, vitamin supplements. The patient is seen today 11/11/2021 in follow-up on the regular medical floor. He is awake and alert in no acute distress. Sitting up in a chair at the bedside. Breathing easier today compared to yesterday. He has a dry nonproductive cough. No fever or chills. Maintaining O2 saturation in the low 90s on 5 L/m per nasal cannula. He's been afebrile. Sodium 143. Potassium 4.6. BUN 38. Creatinine 1.3. He remains on Decadron, vitamin supplements, Eliquis. The patient is seen today 11/12/2021 in follow-up on the regular medical floor. He is currently sitting up in bed. Awake and alert in no acute distress. He is breathing a bit easier today compared to yesterday. Less cough. His cough is dry. He is still requiring 5 L high flow nasal cannula to maintain O2 saturations in the 90s. Sodium 141. Potassium 4.6. Bicarb 23. BUN 34. Creatinine 1.2. AST 44. ALT 110. He is continued on Decadron, vitamin supplements. Anticoagulated with Eliquis. Objective - Vital Signs Vital signs: Vital Signs Temp 97.9 F 11/12/21 09:59 Pulse 60 11/12/21 09:59 Resp 17 11/12/21 09:59 BP 162/80 11/12/21 09:59 Pulse Ox 91 L 11/12/21 09:59 Intake & Output 11/11/21 11/12/21 11/12/21 18:59 06:59 18:59 Intake Total 180 Balance 180 Intake: Oral 180 Other: Voiding Method Toilet Urinal # Voids 5 3 # Bowel Movements 2 0 - Exam GENERAL EXAM: Alert, 81-year-old male patient, on 5 L nasal cannula, comfortable in no apparent distress. HEAD: Normocephalic. EYES: Normal reaction of pupils, equal size. NOSE: Clear with pink turbinates. THROAT: No erythema or exudates. NECK: No masses, no JVD. CHEST: No chest wall deformity. LUNGS: Equal air entry with crackles in the bilateral bases. CVS: S1 and S2 normal with no audible murmur, regular paced rhythm. ABDOMEN: No hepatosplenomegaly, normal bowel sounds, no guarding or rigidity. SPINE: No scoliosis or deformity SKIN: No rashes CENTRAL NERVOUS SYSTEM: No focal deficits, tone is normal in all 4 extremities. EXTREMITIES: There is no peripheral edema. No clubbing, no cyanosis. Peripheral pulses are intact. - Labs CBC & Chem 7: 11/08/21 05:15 11/12/21 06:44 Labs: Abnormal Lab Results - Last 24 Hours (Table) 11/12/21 Range/Units 06:44 BUN 34.0 H (9.0-27.0) mg/dL Est GFR (CKD-EPI)NonAf 56.4 L (60.0-200.0) BUN/Creatinine Ratio 28.33 H (12.00-20.00) Ratio AST 44 H (14-35) U/L ALT 110 H (10-49) U/L Albumin 3.4 L (3.8-4.9) g/dL Globulin 3.4 H (1.6-3.3) g/dL Albumin/Globulin Ratio 1.00 L (1.60-3.17) g/dL Assessment and Plan Assessment: 1 Acute hypoxic respiratory failure secondary to acute COVID-19 pneumonia. Not vaccinated. Outside the window for Remdesivir. Not qualifying for Baricitinib. 2 Acute left lower extremity DVT, suspect secondary to above, initiated on Eliquis 3 Transaminitis suspect secondary to CoVID infection 4 Acute renal failure suspect secondary to dehydration and is 5 Elevated inflammatory markers secondary to COVID-19 infection is 6 Hypertension 7 History of open heart surgery, details are not available 8 Permanent pacemaker implantation 9 Hyperlipidemia Plan: The patient was seen and evaluated Stable and on 5 L nasal cannula Titrate the FiO2 as tolerated Continue the current treatment plan Follow-up x-ray in a.m. We'll continue to follow I, the cosigning physician, performed a history & physical examination of the patient. Lungs sounds with coarse crackles in the bilateral bases. Maintaining O2 saturations in the 90s on 5 L/m per nasal cannula. I discussed the assessment and plan of care with my nurse practitioner, Hannah Marcelino. I attest to the above note as dictated by her. I have personally seen and examined the patient, performed the documentation and the assessment and plan as written. Number of minutes spent on the visit: 10. <Yessy Lopezschuyler - Last Filed: 11/12/21 13:47> Objective - Vital Signs Vital signs: Vital Signs Temp 97.9 F 11/12/21 09:59 Pulse 60 11/12/21 09:59 Resp 17 11/12/21 09:59 BP 162/80 11/12/21 09:59 Pulse Ox 91 L 11/12/21 09:59 Intake & Output 11/11/21 11/12/21 11/12/21 18:59 06:59 18:59 Intake Total 180 Balance 180 Intake: Oral 180 Other: Voiding Method Toilet Urinal # Voids 5 3 # Bowel Movements 2 0 - Labs CBC & Chem 7: 11/08/21 05:15 11/12/21 06:44 Labs: Abnormal Lab Results - Last 24 Hours (Table) 11/12/21 Range/Units 06:44 BUN 34.0 H (9.0-27.0) mg/dL Est GFR (CKD-EPI)NonAf 56.4 L (60.0-200.0) BUN/Creatinine Ratio 28.33 H (12.00-20.00) Ratio AST 44 H (14-35) U/L ALT 110 H (10-49) U/L Albumin 3.4 L (3.8-4.9) g/dL Globulin 3.4 H (1.6-3.3) g/dL Albumin/Globulin Ratio 1.00 L (1.60-3.17) g/dL Assessment and Plan Assessment: I have personally seen and examined the patient and reviewed the documentation. I performed a joint evaluation with the nurse practitioner in this evaluation was done more than 20 minutes. I fully agree with the documentation above and the plan of care.
[2021-11-12] MEDS: METOPROLOL SUCCINATE (ER) 50 MG TAB.ER.24H PO SCH (19:53)
--- NOTE | 2021-11-12 21:08 | P.PN ---
Subjective Progress Note Date: 11/12/21 This is a pleasant 81 years old male with past medical history of hypertension Presents because of dyspnea. Patient states for the last 3 weeks he has nausea with little vomiting but with diarrhea as well He is been coughing a lot no lid try and Last week he starts feeling really week. The last 2 days and yesterday he was noticed that his pulse ox. In this coming low less than 89 and this morning was 81-82% so he decided to come to emergency room. He denies chest pain, no headache or weakness or numbness He denies smoking, alcohol or illicit drugs Patient on the presentation is hypoxic with oxygen saturation 88% on room air and 92% on 2 L oxygen, tachypneic 20-22, afebrile. Left showing unremarkable CBC, INR D-dimer elevated 3.6 Creatinine elevated 2.0 Dear enzymes mildly elevated with AST 234 and ALT 154, bilirubin is normal 1.1 CRP is elevated 8.8, Coronavirus detected Chest x-ray: Bilateral infiltrate and patchy opacities EKG paced rhythm 11/09/2021 Patient sitting in chair not in respiratory distress, no chest pain or dyspnea while at rest. His oxygen requirements today went up to 4 L/m with saturation 92%. Labs today showing creatinine improved 1.4, liver enzymes trending down, Patient remains on Eliquis 10 mg started yesterday after Doppler of the leg came back positive for left DVT. Also on dexamethasone 6 mg daily, multiple vitamins, we going to lower the fluid to 40-50 L per minute. 11/10/2021 Genital bit tired today. He is eating well, his vitals are stable, he requires 5 L per minute of oxygen to keep saturation 90-92%. Chest x-ray showing pneumonia. With some improvement Remains on dexamethasone, Eliquis 10 mg, multiple vitamins and he was on normal saline at 40 mL/h which is stopped today. 11/11/2021 Patient respiratory status and hypoxia is a stable on need of 5 L/m with saturation 94% better than yesterday 90%. Mildly tachypneic, coughing a lot. No much phlegm. No abdominal pain. No diarrhea. Hemodynamically stable. Creatinine is stable and improving slowly and gradually down to 1.3. Liver enzymes were trending down as well. Pulmonary team on the case and is currently With Eliquis for his recent DVT, dexamethasone, multiple vitamins while IV fluids were stopped. Possible discharge in 24-48 hours once he got occluded from pulmonary service Discussed with bilingual case manager to provide oxygen at home upon discharge 11/12/2021 Patient is currently resting in the bed. Awake alert and oriented. Currently requiring oxygen at 4 L via nasal cannula. Patient states that his breathing is better but still having exertional dyspnea. Cough without any sputum production. No nausea or vomiting. No complaints of chest pain. No headache or dizziness or lightheadedness. No fever no chills. Laboratory showed sodium 141 potassium 4.0 chloride 107 BUN 34 and creatinine 1.2. Patient is being continued Eliquis loading dose 10 mg twice daily and dexamethasone 6 mg IV push daily and multivitamins. Current medications reviewed. Objective - Vital Signs Vital signs: Vital Signs Temp 97.9 F 11/12/21 09:59 Pulse 60 11/12/21 09:59 Resp 17 11/12/21 09:59 BP 162/80 11/12/21 09:59 Pulse Ox 91 L 11/12/21 09:59 Intake & Output 11/11/21 11/12/21 11/12/21 18:59 06:59 18:59 Intake Total 180 Balance 180 Intake: Oral 180 Other: Voiding Method Toilet Urinal # Voids 5 3 # Bowel Movements 2 0 - Exam - Exam GENERAL: The patient is alert and oriented x3, not in any acute distress. Well developed, well nourished. HEENT: Pupils are round and equally reacting to light. EOMI. No scleral icterus. No conjunctival pallor. Normocephalic, atraumatic. No pharyngeal erythema. No thyromegaly. CARDIOVASCULAR: S1 and S2 present. No murmurs, rubs, or gallops. PULMONARY: Chest is clear to auscultation, no wheezing or crackles. ABDOMEN: Soft, nontender, nondistended, normoactive bowel sounds. No palpable organomegaly. MUSCULOSKELETAL: No joint swelling or deformity. EXTREMITIES: No cyanosis, clubbing, or pedal edema. NEUROLOGICAL: Gross neurological examination did not reveal any focal deficits. SKIN: No rashes. no petechiae. - Labs CBC & Chem 7: 11/08/21 05:15 11/12/21 06:44 Labs: Abnormal Lab Results - Last 24 Hours (Table) 02/26/22 Range/Units 06:44 BUN 34.0 H (9.0-27.0) mg/dL Est GFR (CKD-EPI)NonAf 56.4 L (60.0-200.0) BUN/Creatinine Ratio 28.33 H (12.00-20.00) Ratio AST 44 H (14-35) U/L ALT 110 H (10-49) U/L Albumin 3.4 L (3.8-4.9) g/dL Globulin 3.4 H (1.6-3.3) g/dL Albumin/Globulin Ratio 1.00 L (1.60-3.17) g/dL Assessment and Plan Assessment: Bilateral Covid pneumonia Acute hypoxic respiratory failure Increased inflammatory markers Acute left leg DVT Hypertension Acute kidney injury Elevated d-dimer Plan: This is a pleasant 81 years old male who presents with covid pneumonia Continue with dexamethasone Continue with vitamin C, vitamin D and zinc Pulmonary is following. Keep patient on Eliquis therapeutic dose 10 mg twice a day hold lisinopril on admission due to worsening creatinine. We going to restarted at a lower dose instead of 30 mg of going to start 10 mgue same treatment. Continue with symptomatic treatment. GI prophylaxis. DVT prophylaxis: Eliquis GI Prophylaxis: Pepcid PT/OT: home healthcare, ordered Prognosis is guarded Time with Patient: Greater than 30
--- NOTE | 2021-11-13 08:02 | XR ---
EXAMINATION TYPE: XR chest 1V portable DATE OF EXAM: 11/13/2021 COMPARISON: Chest x-ray 11/10/2021 HISTORY: Covid pneumonia, cough TECHNIQUE: Single frontal view of the chest is obtained. FINDINGS: Patient is post median sternotomy. Cardiac mediastinal silhouette shows a similar appearan ce. Pleural-parenchymal changes are also similar. Pacemaker is unchanged. No evident pneumothorax. 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 No evident pneumothorax or sizable effusion. IMPRESSION: Correlate for pneumonia. There is hiatal hernia present
[2021-11-13 08:14] LABS: Basophils % (A) 0 %; Eosinophils # (A) 0.1 k/uL (0-0.7); Eosinophils % (A) 1 %; HCT 50.5 % (39.0-53.0); HGB 16.4 gm/dL (13.0-17.5); Lymphocytes # (A) 1.9 k/uL (1.0-4.8); Lymphocytes % (A) 15 %; MCH 31.3 pg (25.0-35.0); MCHC 32.5 g/dL (31.0-37.0); MCV 96.4 fL (80.0-100.0); Mean Platelet Volume 7.4; Monocytes # (A) 0.7 k/uL (0-1.0); Monocytes % (A) 6 %; Neutrophils # (A) 9.6 k/uL (1.3-7.7); Neutrophils % (A) 77 %; Platelet Count 429 k/uL (150-450); RBC 5.23 m/uL (4.30-5.90); RDW 12.3 % (11.5-15.5); WBC 12.4 k/uL (3.8-10.6)
[2021-11-13] MEDS: APIXABAN 5 MG TAB PO SCH ×2 (08:33→20:05)
[2021-11-13] MEDS: lisinopriL 10 MG TAB PO SCH (08:33)
[2021-11-13] MEDS: ZINC SULFATE 220 MG CAP PO SCH (08:33)
[2021-11-13] MEDS: ASCORBIC ACID 500 MG TAB PO SCH (08:33)
[2021-11-13] MEDS: CHOLECALCIFEROL 25 MCG (1000 IU) TABLET PO SCH (08:33)
[2021-11-13] MEDS: DEXAMETHASONE SOD PHOSPHATE 10 MG/ML 1 ML VIAL IVP SCH (09:11)
[2021-11-13 13:32] LABS: Anion Gap 13.5 mmol/L (10.00-18.00); BUN/Creat Ratio 28.66 Ratio (12.00-20.00); Blood Urea Nitrogen 34.1 mg/dL (9.0-27.0); C Reactive Protein 1.2 mg/dL (0.00-0.80); Carbon Dioxide 23.9 mmol/L (20.0-27.5); Non-African American GFR(CKD) 56.9 (60.0-200.0); Potassium 4.6 mmol/L (3.5-5.5)
--- NOTE | 2021-11-13 15:21 | P.PN ---
Subjective Progress Note Date: 11/13/21 This is an 81-year-old gentleman who is extremely hard of hearing. He has a history of hypertension, hyperlipidemia, permanent pacemaker implantation, previous open heart surgery. He also has a three-week history of nausea, vomiting, generalized weakness and shortness of breath. His oxygen saturations dropped to 81-85% on room air while at home. He presented here to the emergency room for the same. Chest x-ray shows bilateral diffuse moderate patchy airspace opacities. No pleural effusion. No pneumothorax. EKG reveals a paced rhythm. Doppler lower extremity revealed thrombus in the left midportion popliteal vein. White count 8.5. Hemoglobin 14.7. Platelets 316. D-dimer 3.6. Lymphocytes 1.26. Sodium 138. Potassium 4.3. Creatinine 1.8. GFR 34.5. BUN 58. Magnesium 2.7. AST 170. ALT 144. LDH 420. C-reactive protein 10.5. Pro- calcitonin 0.18. The patient is seen today in consultation on the regular medical floor. He is up ambulating in his room. Awake and alert in no acute distress. He is requiring 2 L/m per nasal cannula. He's been afebrile. Hemodynamically stable. He's been initiated on vitamin supplements. The patient is seen today for 2021 in follow-up on the regular medical floor. He is currently resting comfortably in bed. Awake and alert in no acute distress. He is maintaining O2 saturation in the low 90s on 4 L high flow nasal cannula. He's been afebrile. Hemodynamically stable. Sodium 138. Potassium 4.4. The 146. Creatinine 1.4. Glucose 117. AST 150. ALT 183. He remains on Eliquis, Decadron, vitamin supplements. The patient is seen today 11/10/2021 in follow-up on the regular medical floor. He is currently sitting up in a chair at bedside. Awake and alert in no acute distress. He is quite hard of hearing. He does admit to breathing easier today. He is feeling quite a bit better. He is maintaining O2 saturations between 89 and 90% on 5 L high flow nasal cannula. He's been afebrile. Hemodynamically stable. Chest x-ray continues to show patchy densities bilaterally. There is some improvement in aeration and lung volume. Retrocardiac lucency is consistent with hiatal hernia with partial intrathoracic stomach. No evidence of pneumothorax or pleural effusions. He is continued on Decadron, Eliquis, vitamin supplements. The patient is seen today 11/11/2021 in follow-up on the regular medical floor. He is awake and alert in no acute distress. Sitting up in a chair at the bedside. Breathing easier today compared to yesterday. He has a dry nonproductive cough. No fever or chills. Maintaining O2 saturation in the low 90s on 5 L/m per nasal cannula. He's been afebrile. Sodium 143. Potassium 4 .6. BUN 38. Creatinine 1.3. He remains on Decadron, vitamin supplements, Eliquis. The patient is seen today 11/12/2021 in follow-up on the regular medical floor. He is currently sitting up in bed. Awake and alert in no acute distress. He is breathing a bit easier today compared to yesterday. Less cough. His cough is dry. He is still requiring 5 L high flow nasal cannula to maintain O2 sa turations in the 90s. Sodium 141. Potassium 4.6. Bicarb 23. BUN 34. Creatinine 1.2. AST 44. ALT 110. He is continued on Decadron, vitamin supplements. Anticoagulated with Eliquis. 11/13/2021, the patient is doing well. No specific complaints. Still on 5 L and this can be easily weaned off as the patient's current pulse ox 96%. His cough has subsided. Less short of breath compared to yesterday. Denies having any chest pain. Note that the patient is a case of COVID 19 related pneumonia. The patient is currently on Decadron 6 L IV every 24 hours. He is also on long-term articulation with Eliquis. Chest x-ray was repeated the patient's chest x-ray findings are essentially stable about pulmonary infiltrates. Nevertheless, he feels better. The patient feels less short of breath. He is afebrile. The white cell count of 12.4 with hemoglobin of 16, BUN is at 34 with a creatinine of 1.2, LDH level is down to 303, CRP level is down to 1.2, creatinine level is down to 1.2. Objective - Vital Signs Vital signs: Vital Signs Temp 97.8 F 11/13/21 10:00 Pulse 60 11/13/21 10:00 Resp 18 11/13/21 10:00 BP 149/87 11/13/21 10:00 Pulse Ox 96 11/13/21 10:00 Intake & Output 11/12/21 11/13/21 11/13/21 18:59 06:59 18:59 Output Total 1 2 Balance -1 -2 Output: Stool 1 2 Other: # Voids 4 4 - Exam GENERAL EXAM: Alert, 81-year-old male patient, on 5 L nasal cannula, comfortable in no apparent distress. HEAD: Normocephalic. EYES: Normal reaction of pupils, equal size. NOSE: Clear with pink turbinates. THROAT: No erythema or exudates. NECK: No masses, no JVD. CHEST: No chest wall deformity. LUNGS: Equal air entry with crackles in the bilateral bases. CVS: S1 and S2 normal with no audible murmur, regular paced rhythm. ABDOMEN: No hepatosplenomegaly, normal bowel sounds, no guarding or rigidity. SPINE: No scoliosis or deformity SKIN: No rashes CENTRAL NERVOUS SYSTEM: No focal deficits, tone is normal in all 4 extremities. EXTREMITIES: There is no peripheral edema. No clubbing, no cyanosis. Peripheral pulses are intact. - Labs CBC & Chem 7: 11/13/21 07:26 11/13/21 07:26 Labs: Abnormal Lab Results - Last 24 Hours (Table) 11/13/21 Range/Units 07:26 WBC 12.4 H (3.8-10.6) k/uL Neutrophils # 9.6 H (1.3-7.7) k/uL Assessment and Plan Plan: 1 Acute hypoxic respiratory failure secondary to acute COVID-19 pneumonia. Not vaccinated. Outside the window for Remdesivir. Not qualifying for Baricitinib. The patient is stable. Chest exit findings are stable. Inflammatory markers are lower and the patient remains on 5 L about 2 by nasal cannula and we should be able to wean down further to maintain a saturation above 90%. 2 Acute left lower extremity DVT, suspect secondary to above, initiated on Eliquis and the patient remains on Eliquis 5 mg by mouth twice a day. 3 Transaminitis suspect secondary to CoVID infection 4 Acute renal failure suspect secondary to dehydration and renal function is improved. 5 Elevated inflammatory markers secondary to COVID-19 infection and inflammatory markers are also improving 6 Hypertension 7 History of open heart surgery, details are not available 8 Permanent pacemaker implantation 9 Hyperlipidemia Plan: The patient is clinically stable Stable and on 5 L nasal cannula, wean down the FiO2 as long as the patient's saturation remains above 90% Cough has subsided Follow-up chest x-ray findings are essentially stable We'll continue to follow
[2021-11-13] MEDS: METOPROLOL SUCCINATE (ER) 50 MG TAB.ER.24H PO SCH (20:05)
[2021-11-14] MEDS: DEXAMETHASONE SOD PHOSPHATE 10 MG/ML 1 ML VIAL IVP SCH (09:28)
[2021-11-14] MEDS: APIXABAN 5 MG TAB PO SCH (09:29)
[2021-11-14] MEDS: ZINC SULFATE 220 MG CAP PO SCH (09:29)
[2021-11-14] MEDS: ASCORBIC ACID 500 MG TAB PO SCH (09:29)
[2021-11-14] MEDS: lisinopriL 10 MG TAB PO SCH (09:29)
[2021-11-14] MEDS: CHOLECALCIFEROL 25 MCG (1000 IU) TABLET PO SCH (09:29)
[2021-11-14 10:11] LABS: Anion Gap 11.5 mmol/L (10.00-18.00); BUN/Creat Ratio 29.61 Ratio (12.00-20.00); Blood Urea Nitrogen 37.6 mg/dL (9.0-27.0); Calcium 8.8 mg/dL (8.7-10.3); Carbon Dioxide 24.3 mmol/L (20.0-27.5); Non-African American GFR(CKD) 52.6 (60.0-200.0)
--- NOTE | 2021-11-14 13:39 | P.PN ---
Subjective Progress Note Date: 11/13/21 This is a pleasant 81 years old male with past medical history of hypertension Presents because of dyspnea. Patient states for the last 3 weeks he has nausea with little vomiting but with diarrhea as well He is been coughing a lot no lid try and Last week he starts feeling really week. The last 2 days and yesterday he was noticed that his pulse ox. In this coming low less than 89 and this morning was 81-82% so he decided to come to emergency room. He denies chest pain, no headache or weakness or numbness He denies smoking, alcohol or illicit drugs Patient on the presentation is hypoxic with oxygen saturation 88% on room air and 92% on 2 L oxygen, tachypneic 20-22, afebrile. Left showing unremarkable CBC, INR D-dimer elevated 3.6 Creatinine elevated 2.0 Dear enzymes mildly elevated with AST 234 and ALT 154, bilirubin is normal 1.1 CRP is elevated 8.8, Coronavirus detected Chest x-ray: Bilateral infiltrate and patchy opacities EKG paced rhythm 11/09/2021 Patient sitting in chair not in respiratory distress, no chest pain or dyspnea while at rest. His oxygen requirements today went up to 4 L/m with saturation 92%. Labs today showing creatinine improved 1.4, liver enzymes trending down, Patient remains on Eliquis 10 mg started yesterday after Doppler of the leg came back positive for left DVT. Also on dexamethasone 6 mg daily, multiple vitamins, we going to lower the fluid to 40-50 L per minute. 11/10/2021 Genital bit tired today. He is eating well, his vitals are stable, he requires 5 L per minute of oxygen to keep saturation 90-92%. Chest x-ray showing pneumonia. With some improvement Remains on dexamethasone, Eliquis 10 mg, multiple vitamins and he was on normal saline at 40 mL/h which is stopped today. 11/11/2021 Patient respiratory status and hypoxia is a stable on need of 5 L/m with saturation 94% better than yesterday 90%. Mildly tachypneic, coughing a lot. No much phlegm. No abdominal pain. No diarrhea. Hemodynamically stable. Creatinine is stable and improving slowly and gradually down to 1.3. Liver enzymes were trending down as well. Pulmonary team on the case and is currently With Eliquis for his recent DVT, dexamethasone, multiple vitamins while IV fluids were stopped. Possible discharge in 24-48 hours once he got occluded from pulmonary service Discussed with correctional case records supervisor to provide oxygen at home upon discharge 11/12/2021 Patient is currently resting in the bed. Awake alert and oriented. Currently requiring oxygen at 4 L via nasal cannula. Patient states that his breathing is better but still having exertional dyspnea. Cough without any sputum production. No nausea or vomiting. No complaints of chest pain. No headache or dizziness or lightheadedness. No fever no chills. Laboratory showed sodium 141 potassium 4.0 chloride 107 BUN 34 and creatinine 1.2. Patient is being continued Eliquis loading dose 10 mg twice daily and dexamethasone 6 mg IV push daily and multivitamins. 11/13/2021 Patient is currently resting in the bed. Awake alert and oriented. Hard of hearing. Requiring 4 L oxygen by nasal cannula. Hemodynamically stable. Patient is being continued on dexamethasone, Eliquis and also multivitamins. There any complaints of chest pain. Patient denied any nausea vomiting. Tolerating oral diet. Anticipate discharge in next 24 hours the patient continues to be improving. Laboratory data showed the visit. 5. Hemoglobin 16.4 and platelets 429 Sodium 142 potassium 4.6 chloride 105 BUN 34.1 and creatinine is 1.2, LDH 303, CRP 1.2 Current medications reviewed. Objective - Vital Signs Vital signs: Vital Signs Temp 98.7 F 11/13/21 14:00 Pulse 64 11/13/21 14:00 Resp 18 11/13/21 14:00 BP 143/87 11/13/21 14:00 Pulse Ox 91 L 11/13/21 14:00 Intake & Output 11/12/21 11/13/21 11/13/21 18:59 06:59 18:59 Output Total 1 2 1 Balance -1 -2 -1 Output: Stool 1 2 1 Other: # Voids 4 4 5 - Exam - Exam GENERAL: The patient is alert and oriented x3, not in any acute distress. Well developed, well nourished. HEENT: Pupils are round and equally reacting to light. EOMI. No scleral icterus. No conjunctival pallor. Normocephalic, atraumatic. No pharyngeal erythema. No thyromegaly. CARDIOVASCULAR: S1 and S2 present. No murmurs, rubs, or gallops. PULMONARY: Chest is clear to auscultation, no wheezing or crackles. ABDOMEN: Soft, nontender, nondistended, normoactive bowel sounds. No palpable organomegaly. MUSCULOSKELETAL: No joint swelling or deformity. EXTREMITIES: No cyanosis, clubbing, or pedal edema. NEUROLOGICAL: Gross neurological examination did not reveal any focal deficits. SKIN: No rashes. no petechiae. - Labs CBC & Chem 7: 11/13/21 07:26 11/14/21 05:09 Labs: Abnormal Lab Results - Last 24 Hours (Table) 11/13/21 11/13/21 Range/Units 07:26 07:26 WBC 12.4 H (3.8-10.6) k/uL Neutrophils # 9.6 H (1.3-7.7) k/uL BUN 34.1 H (9.0-27.0) mg/dL Est GFR (CKD-EPI)NonAf 56.9 L (60.0-200.0) BUN/Creatinine Ratio 28.66 H (12.00-20.00) Ratio Lactate Dehydrogenase 303 H (120-246) U/L C-Reactive Protein 1.20 H (0.00-0.80) mg/dL Assessment and Plan Assessment: Bilateral Covid pneumonia Acute hypoxic respiratory failure secondary to coronary 19 pneumonia Increased inflammatory markers Acute left leg DVT Hypertension Acute kidney injury Elevated d-dimer Plan: This is a pleasant 81 years old male who presents with covid pneumonia Continue with dexamethasone Continue with vitamin C, vitamin D and zinc Pulmonary is following. Keep patient on Eliquis therapeutic dose 10 mg twice a day for 7 days followed by 5 mg twice a day. GI prophylaxis. DVT prophylaxis: Eliquis GI Prophylaxis: Pepcid PT/OT: home healthcare, ordered Prognosis is guarded
--- NOTE | 2021-11-14 13:55 | P.PN ---
Subjective Progress Note Date: 11/14/21 This is an 81-year-old gentleman who is extremely hard of hearing. He has a history of hypertension, hyperlipidemia, permanent pacemaker implantation, previous open heart surgery. He also has a three-week history of nausea, vomiting, generalized weakness and shortness of breath. His oxygen saturations dropped to 81-85% on room air while at home. He presented here to the emergency room for the same. Chest x-ray shows bilateral diffuse moderate patchy airspace opacities. No pleural effusion. No pneumothorax. EKG reveals a paced rhythm. Doppler lower extremity revealed thrombus in the left midportion popliteal vein. White count 8.5. Hemoglobin 14.7. Platelets 316. D-dimer 3.6. Lymphocytes 1.26. Sodium 138. Potassium 4.3. Creatinine 1.8. GFR 34.5. BUN 58. Magnesium 2.7. AST 170. ALT 144. LDH 420. C-reactive protein 10.5. Pro- calcitonin 0.18. The patient is seen today in consultation on the regular medical floor. He is up ambulating in his room. Awake and alert in no acute distress. He is requiring 2 L/m per nasal cannula. He's been afebrile. Hemodynamically stable. He's been initiated on vitamin supplements. The patient is seen today for 2021 in follow-up on the regular medical floor. He is currently resting comfortably in bed. Awake and alert in no acute distress. He is maintaining O2 saturation in the low 90s on 4 L high flow nasal cannula. He's been afebrile. Hemodynamically stable. Sodium 138. Potassium 4.4. The 146. Creatinine 1.4. Glucose 117. AST 150. ALT 183. He remains on Eliquis, Decadron, vitamin supplements. The patient is seen today 11/10/2021 in follow-up on the regular medical floor. He is currently sitting up in a chair at bedside. Awake and alert in no acute distress. He is quite hard of hearing. He does admit to breathing easier today. He is feeling quite a bit better. He is maintaining O2 saturations between 89 and 90% on 5 L high flow nasal cannula. He's been afebrile. Hemodynamically stable. Chest x-ray continues to show patchy densities bilaterally. There is some improvement in aeration and lung volume. Retrocardiac lucency is consistent with hiatal hernia with partial intrathoracic stomach. No evidence of pneumothorax or pleural effusions. He is continued on Decadron, Eliquis, vitamin supplements. The patient is seen today 11/11/2021 in follow-up on the regular medical floor. He is awake and alert in no acute distress. Sitting up in a chair at the bedside. Breathing easier today compared to yesterday. He has a dry nonproductive cough. No fever or chills. Maintaining O2 saturation in the low 90s on 5 L/m per nasal cannula. He's been afebrile. Sodium 143. Potassium 4 .6. BUN 38. Creatinine 1.3. He remains on Decadron, vitamin supplements, Eliquis. The patient is seen today 11/12/2021 in follow-up on the regular medical floor. He is currently sitting up in bed. Awake and alert in no acute distress. He is breathing a bit easier today compared to yesterday. Less cough. His cough is dry. He is still requiring 5 L high flow nasal cannula to maintain O2 sa turations in the 90s. Sodium 141. Potassium 4.6. Bicarb 23. BUN 34. Creatinine 1.2. AST 44. ALT 110. He is continued on Decadron, vitamin supplements. Anticoagulated with Eliquis. 11/13/2021, the patient is doing well. No specific complaints. Still on 5 L and this can be easily weaned off as the patient's current pulse ox 96%. His cough has subsided. Less short of breath compared to yesterday. Denies having any chest pain. Note that the patient is a case of COVID 19 related pneumonia. The patient is currently on Decadron 6 L IV every 24 hours. He is also on long-term articulation with Eliquis. Chest x-ray was repeated the patient's chest x-ray findings are essentially stable about pulmonary infiltrates. Nevertheless, he feels better. The patient feels less short of breath. He is afebrile. The white cell count of 12.4 with hemoglobin of 16, BUN is at 34 with a creatinine of 1.2, LDH level is down to 303, CRP level is down to 1.2, creatinine level is down to 1.2. 11/14/2021, the patient is stable. He is currently on 40s about 2 by nasal cannula. No worsening shortness of breath. He remains on Decadron. Remains on anticoagulation with Eliquis. Blood work from today shows a creatinine of 1.3 which is stable compared to yesterday with a BUN of 37. Serum bicarbonate 24. Sodium level is at 141. His most recent LDH level was down to 303 and a CRP level was down to 1.2. The patient has no specific complaints. He is hard of hearing. It is difficult to communicate. He is willing to go home as long as we have offered them oxygen to maintain a saturation above 90%. Also need a pulse oximeter to do home oxygen monitoring. He is known to have hypertension and hyperlipidemia and he has a permanent pacemaker in place and he has undergone previous open heart surgery for CAD. Objective - Vital Signs Vital signs: Vital Signs Temp 97.5 F L 11/14/21 10:00 Pulse 60 11/14/21 10:00 Resp 17 11/14/21 10:00 BP 113/71 11/14/21 10:00 Pulse Ox 93 L 11/14/21 10:00 Intake & Output 11/13/21 11/14/21 11/14/21 18:59 06:59 18:59 Intake Total 240 296 Output Total 1 Balance -1 240 296 Intake: Oral 240 296 Output: Stool 1 Other: # Voids 5 2 - Exam GENERAL EXAM: Alert, 81-year-old male patient, on 4 L nasal cannula, comfortable in no apparent distress. HEAD: Normocephalic. EYES: Normal reaction of pupils, equal size. NOSE: Clear with pink turbinates. THROAT: No erythema or exudates. NECK: No masses, no JVD. CHEST: No chest wall deformity. LUNGS: Equal air entry with crackles in the bilateral bases. CVS: S1 and S2 normal with no audible murmur, regular paced rhythm. ABDOMEN: No hepatosplenomegaly, normal bowel sounds, no guarding or rigidity. SPINE: No scoliosis or deformity SKIN: No rashes CENTRAL NERVOUS SYSTEM: No focal deficits, tone is normal in all 4 extremities. EXTREMITIES: There is no peripheral edema. No clubbing, no cyanosis. Peripheral pulses are intact. - Labs CBC & Chem 7: 11/13/21 07:26 11/14/21 05:09 Labs: Abnormal Lab Results - Last 24 Hours (Table) 02/28/22 Range/Units 05:09 BUN 37.6 H (9.0-27.0) mg/dL Est GFR (CKD-EPI)NonAf 52.6 L (60.0-200.0) BUN/Creatinine Ratio 29.61 H (12.00-20.00) Ratio Assessment and Plan Plan: 1 Acute hypoxic respiratory failure secondary to acute COVID-19 pneumonia. Not vaccinated. Patient has remained stable on 4 L about 2 by nasal cannula. No interval worsening shortness of breath. Clinically stable. 2 Acute left lower extremity DVT, suspect secondary to above, initiated on Eliquis. The patient has a thrombus in the midportion of the left popliteal vein. 3 Transaminitis suspect secondary to CoVID infection 4 Acute renal failure suspect secondary to dehydration and renal function is improved. 5 Elevated inflammatory markers secondary to COVID-19 infection and inflammatory markers are also improving 6 Hypertension 7 History of open heart surgery, details are not available 8 Permanent pacemaker implantation 9 Hyperlipidemia Plan: The patient is clinically stable Stable and on4 L nasal cannula, wean down the FiO2 as long as the patient's saturation remains above 90% May be able to go home as long as home O2 is arranged Continue Eliquis 10 mg to complete a one-week course and following that developed a dose of 5 mg twice a day Cough has subsided Follow-up chest x-ray findings are essentially stable We'll continue to follow Possible home as long as home O2 and a pulse oximeter his age. Patient. He is taking anticoagulation. No bleeding complications. Overall pulmonary status is stable.
[2021-11-14 15:16] VITALS: BMI 29.2
[2021-11-14 15:18] VITALS: BP 101/68; PULSE 57; RESP 16; TEMP 97.6
== END 2021-11-14 17:15 | disposition home health service (06) | DRG 177 ==
LOC: EC 19:37 → 4SSUR 22:37
PROVIDERS: ADMIT Internal Medicine; ATTEND Internal Medicine
PROC: 3E0333Z Introduction of Anti-inflammatory into Peripheral Vein, Percutaneous Approach (ICD-10-PCS; principal; 2021-11-08)
DX: U07.1 COVID-19 (principal); J12.82 Pneumonia due to coronavirus disease 2019; J96.01 Acute respiratory failure with hypoxia; I82.402 Acute embolism and thrombosis of unspecified deep veins of left lower extremity; N17.9 Acute kidney failure, unspecified; E78.5 Hyperlipidemia, unspecified; H91.90 Unspecified hearing loss, unspecified ear; I10 Essential (primary) hypertension; I25.10 Atherosclerotic heart disease of native coronary artery without angina pectoris; K44.9 Diaphragmatic hernia without obstruction or gangrene; R74.01 Elevation of levels of liver transaminase levels; Z79.01 Long term (current) use of anticoagulants; Z79.82 Long term (current) use of aspirin; Z79.899 Other long term (current) drug therapy; Z86.718 Personal history of other venous thrombosis and embolism; Z95.0 Presence of cardiac pacemaker; Z95.1 Presence of aortocoronary bypass graft
CPT/HCPCS: 36415; 71045; 80048; 80053; 80076; 83615; 83735; 83880; 84145; 84484; 85025; 85379; 85610; 85730; 86140; 87635; 93005; 93970; 94760; 99285

== ENCOUNTER 2023-02-01 14:06 | Day surgery (SDC) | payer MEDICARE ==
[2023-01-29 16:03] VITALS: BMI 30.2
[~2023-02-01 14:06] MED LIST: ceFAZolin 1 GM in SODIUM CHLORIDE 0.9% IRRIG BTL 250 ML IRRIGATION PRN
[2023-02-01] MEDS: SODIUM CHLORIDE 0.9% 1,000 ML IV SCH ×2 (14:55→20:38)
[2023-02-01] MEDS ORDERED: LIDOCAINE 1% INJ 10MG/ML (20 ML MDV) ONE ×3 (17:59→18:37)
[2023-02-01] MEDS ORDERED: VANCOMYCIN 1,400 MG in SODIUM CHLORIDE 0.9% 250 ML IVPB ONE (18:03)
[2023-02-01] MEDS: fentaNYL (PF) 50 MCG/1 ML VIAL IV ONE ×2 (18:04→18:24)
[2023-02-01] MEDS ORDERED: fentaNYL (PF) 50 MCG/ML 2 ML AMP ONE (18:05)
[2023-02-01] MEDS ORDERED: LIDOCAINE 1% INJ 10MG/ML (30 ML VIAL-PF) SQ ONE ×3 (18:06→18:30)
[2023-02-01] MEDS ORDERED: VANCOMYCIN 1,500 MG in SODIUM CHLORIDE 0.9% 500 ML 500 ML IVPB ONE (18:15)
[2023-02-01] MEDS: MIDAZOLAM 2 MG/2 ML VIAL IV ONE ×2 (18:30→18:44)
[2023-02-01] MEDS ORDERED: LIDOCAINE 1% INJ 10MG/ML (20 ML MDV) SQ ONE ×2 (18:43)
[2023-02-01] MEDS ORDERED: LIDOCAINE 2% (PF) 20 MG/ML 5 ML VIAL SQ ONE (19:28)
[2023-02-01] MEDS ORDERED: ACETAMINOPHEN IV (For NPO) 1,000 MG in EMPTY BAG 1 BAG IVPB ONE (19:32)
[2023-02-01] MEDS ORDERED: ACETAMINOPHEN TAB 325 MG TAB PO PRN (19:32)
--- NOTE | 2023-02-01 19:35 | P.PCN ---
Preoperative Diagnosis: Transvenous temporary pacing procedure Indication for the procedure: Severe underlying bradycardia, complete heart block. Device at [facility], dual-chamber Patient was brought to the EP lab in a fasting state. Written informed consent was obtained prior to the procedure. The right groin was prepped and draped as a protocol. A 6-Salvadorean sheath was placed in the right femoral vein. Via this, a temporary pacing catheter was placed in the right ventricle. Thresholds were interrogated. Temporary pacing was performed through the rest of the procedure. At the end of the entire procedure, the TVP was removed. The sheath was removed and hemostasis was assured. Patient tolerated the procedure well without any acute complications. Procedure performed Transvenous temporary pacing
--- NOTE | 2023-02-01 19:41 | P.EPPROC ---
- EP Procedure Note Electrophysiology Procedure Note: Diagnosis Complete heart block status post dual-chamber pacemaker Device at [facility], normal battery depletion Procedure Cinefluoroscopy New subfascial pocket Dual-chamber pacemaker generator change Repair of the RV lead Details Patient was brought to the EP lab in a fasting state. Written informed consent was obtained prior to the procedure. Conscious sedation provided. IV antibiotics administered including vancomycin. Please see separate dictation for TVP placement Cinefluoroscopy of the leads was performed No fractures or breaks noted Local anesthesia administered. A 4 cm incision made in the pectoral area. Patient's pocket was subcutaneous A new subfascial pocket was made. There was a lot of scar tissue around the lead An insulation defect was noted in the RV lead. Lead thresholds and impedances were stable This is repaired with silicone along with tubing and sutured. RV lead the interrogated and stable thresholds and impedances A large a subfascial pocket was then made to accommodate the lead and the generator Venous sheaths placed. Leads placed in the right heart Atrial lead position the right atrial appendage, chronic Medtronic model #5076, 45 cm in length Atrial sensing 3.3 mV and pacing impedance 418 ohms RV lead position in the RV septum chronically. 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 Normal AV delay
[2023-02-02] MEDS: SODIUM CHLORIDE 0.9% 1,000 ML IV SCH ×2 (04:04)
--- NOTE | 2023-02-02 06:44 | P.DS ---
Providers Attending physician: Jagdeep Orozco Primary care physician: [facility] Course: Patient is resting comfortably in bed. His pacemaker generator site is healed well His groin site for access for TVP is healed well no hematoma no swelling No-show patient No chest discomfort no respiratory distress no shortness of breath On examination afebrile Pulse rate 60 Blood pressure 142 82 mmHg Heart sounds are regular No murmurs Abdomen soft No JVD No lower extremity edema Clear lungs no rhonchi no crackles Impression Complete heart block status post pacemaker implantation in the past Pacemaker generator at [facility] secondary to normal battery depletion Yesterday he underwent TVP placement and pacemaker generator change RV lead insulation had a minor break and the lead was repaired RV lead function is completely normal and pacing parameters and impedances are stable and unchanged from baseline He has underlying atrial flutter His 100% paced in the right ventricle Plan Discharge home after completion of IV antibiotics and follow up in the pacemaker clinic in one week Follow-up with Dr. Dr. Cloud as previously scheduled Plan - Discharge Summary Discharge Rx Participant: No New Discharge Prescriptions: Continue Metoprolol Succinate (ER) [Toprol XL] 50 mg PO DAILY Aspirin EC [Ecotrin Low Dose] 81 mg PO DAILY Rosuvastatin [Crestor] 20 mg PO DAILY lisinopriL [Zestril] 30 mg PO DAILY Discharge Medication List Aspirin EC [Ecotrin Low Dose] 81 mg PO DAILY 11/07/21 [History] Metoprolol Succinate (ER) [Toprol XL] 50 mg PO DAILY 11/07/21 [History] Rosuvastatin [Crestor] 20 mg PO DAILY 01/29/23 [History] lisinopriL [Zestril] 30 mg PO DAILY 01/29/23 [History] Follow up Appointment(s)/Referral(s): Vitor Cloud MD [STAFF PHYSICIAN] - 1 Week (Device clinic follow-up in one week Follow-up with Dr. Dr. Cloud as previously scheduled) Activity/Diet/Wound Care/Special Instructions: PATIENT EDUCATION MATERIAL Instructions following a heart rhythm device implant. 1. Keep dressing DRY for 5 DAYS. You may cover the area with Saran or Cling Wrap, prior to a shower. 2. The dressing will be removed in the Device Clinic at [facility]. Absorbable sutures were used to close the wound. 3. Avoid raising the left arm above the shoulder level. 4 week restriction 4. Avoid arm movements, like backscratching, rubbing the head, or pulling on a cord. 4 weeks restriction 5. Gentle range of motion movements of the shoulder, closest to the incision should be performed to avoid a frozen shoulder. (Pendulum exercises of the shoulder) 6. The opposite arm may be used freely. 7. Avoid driving for 7 days. 8. Avoid activities such as golfing, swimming, weed whacking, lifting more than 10 pounds weight, bowling, gymnastics and weight training/lifting. (6 weeks restriction) 9. Activities such as wood chopping with an axe, pull-ups in the gymnasium, power lifting, arc-welding, being close to home induction cooktops will always be a problem. 10. Arm sling is only a reminder not to raise the arm above the head. You do not need to keep the arm completely immobilized. Your free to move the arm and use it and for normal activities. In case of any problems, please call [facility], [place], @ [phone], Attention: Device Clinic Device clinic follow-up in 7 days Follow-up with primary web content producer in 2-3 months Discharge Disposition: HOME SELF-CARE
[2023-02-02] MEDS ORDERED: ASPIRIN 81 MG PO SCH (09:00)
[2023-02-02] MEDS ORDERED: METOPROLOL SUCCINATE (ER) 50 MG TAB.ER.24H PO SCH (09:00)
[2023-02-02] MEDS ORDERED: lisinopriL 10 MG TAB PO SCH (09:00)
[2023-02-02] MEDS ORDERED: NON FORMULARY DRUG (Rosuvastatin 20 MG Tablet) PO SCH (09:00)
[2023-02-02 09:07] VITALS: BP 139/78; PULSE 77; TEMP 98.6
[2023-02-02 11:08] VITALS: RESP 18
== END 2023-02-02 12:03 | disposition home or self-care (01) ==
LOC: CATHEP 14:06 → 6NMEDSUR 19:32 → CATHEP 02-02 12:03
PROVIDERS: ATTEND Internal Medicine Clinical Cardiac Electrophysiology
DX: I25.10 Atherosclerotic heart disease of native coronary artery without angina pectoris (principal); I10 Essential (primary) hypertension; E78.2 Mixed hyperlipidemia; Z79.01 Long term (current) use of anticoagulants; Z79.899 Other long term (current) drug therapy; Z95.1 Presence of aortocoronary bypass graft; Z95.0 Presence of cardiac pacemaker; Z79.82 Long term (current) use of aspirin
CPT/HCPCS: 33228; C1894; C1769 ×2; C1730; C1785; J2250; J3370; J0690 ×2; J2001 ×3; J3010 ×2

== ENCOUNTER 2023-02-09 14:28 | Observation (INO) | payer MEDICARE ==
[2023-02-09] MEDS ORDERED: SODIUM CHLORIDE 0.9% 1,000 ML IV STA (16:24)
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
[2023-02-09 16:52] LABS: Basophils % (A) 0 %; Eosinophils # (A) 0.3 k/uL (0-0.7); Eosinophils % (A) 4 %; HCT 47.4 % (39.0-53.0); HGB 15.1 gm/dL (13.0-17.5); Lymphocytes # (A) 1.9 k/uL (1.0-4.8); Lymphocytes % (A) 23 %; MCH 30.7 pg (25.0-35.0); MCHC 31.8 g/dL (31.0-37.0); MCV 96.6 fL (80.0-100.0); Mean Platelet Volume 7.8; Monocytes # (A) 0.5 k/uL (0-1.0); Monocytes % (A) 6 %; Neutrophils # (A) 5.3 k/uL (1.3-7.7); Neutrophils % (A) 66 %; Platelet Count 217 k/uL (150-450); RBC 4.91 m/uL (4.30-5.90); RDW 12.8 % (11.5-15.5)
[2023-02-09 17:03] LABS: Partial Thromboplastin Time 27.3 sec (22.0-30.0); Prothrombin Time 10.8 sec (9.0-12.0)
[2023-02-09 17:09] LABS: Albumin 4.2 g/dL (3.5-5.0); Calcium 8.6 mg/dL (8.4-10.2); Phosphorus 3.1 mg/dL (2.5-4.5); Potassium 4.3 mmol/L (3.5-5.1); Total Bilirubin 0.8 mg/dL (0.2-1.3); Total Protein 7.6 g/dL (6.3-8.2)
[2023-02-09] MEDS ORDERED: NALOXONE 0.4 MG/ML 1 ML VIAL IV PRN (18:27)
[2023-02-10] MEDS ORDERED: lisinopriL 10 MG TAB PO SCH (09:00)
[2023-02-10] MEDS: APIXABAN 5 MG TAB PO SCH ×2 (09:00→19:27)
[2023-02-10] MEDS ORDERED: IV FLUID CONTINUATION 1,000 ML IV ONE (09:45)
[2023-02-10] MEDS ORDERED: IOPAMIDOL-300 100ML BTL INJ ONE (09:56)
[2023-02-10] MEDS ORDERED: LIDOCAINE 1% INJ 10MG/ML (20 ML MDV) ONE (10:08)
[2023-02-10] MEDS ORDERED: ceFAZolin 1 GM in SODIUM CHLORIDE 0.9% IRRIG BTL 250 ML IRRIGATION PRN ×2 (10:34→11:00)
[2023-02-10] MEDS ORDERED: LIDOCAINE 1% INJ 10MG/ML (30 ML VIAL-PF) SQ ONE (10:37)
[2023-02-10] MEDS ORDERED: VANCOMYCIN 1,500 MG in SODIUM CHLORIDE 0.9% 500 ML 500 ML IVPB ONE (10:38)
[2023-02-10] MEDS ORDERED: fentaNYL (PF) 50 MCG/ML 2 ML AMP ONE ×3 (10:39→12:00)
[2023-02-10] MEDS ORDERED: SODIUM CHLORIDE 0.9% 250 ML IV ONE (10:48)
[2023-02-10] MEDS ORDERED: fentaNYL (PF) 50 MCG/1 ML VIAL IV ONE (11:00)
[2023-02-10] MEDS ORDERED: LIDOCAINE 2% INJ 20 MG/ML SQ ONE (11:32)
[2023-02-10] MEDS: fentaNYL (PF) 50 MCG/1 ML VIAL IV ONE ×2 (11:33→11:37)
[2023-02-10] MEDS: MIDAZOLAM 2 MG/2 ML VIAL IV ONE ×2 (11:33→11:35)
[2023-02-10] MEDS ORDERED: fentaNYL (PF) 50 MCG/ML 2 ML AMP IV ONE (11:50)
[2023-02-10] MEDS ORDERED: KETAMINE 10 MG/ML 20 ML VIAL ONE (12:00)
[2023-02-10] MEDS ORDERED: ACETAMINOPHEN IV (For NPO) 1,000 MG in EMPTY BAG 1 BAG IVPB ONE (12:47)
[2023-02-10] MEDS ORDERED: ACETAMINOPHEN TAB 325 MG TAB PO PRN (12:47)
--- NOTE | 2023-02-10 12:50 | P.EPPROC ---
- EP Procedure Note Electrophysiology Procedure Note: Transvenous temporary pacing procedure Indication for the procedure: Severe underlying bradycardia 4/complete heart block/intermittent loss of ventricular capture, consistent with ventricular lead fracture Patient was brought to the EP lab in a fasting state. Written informed consent was obtained prior to the procedure. The right groin was prepped and draped as a protocol. A 6-Greek sheath was placed in the right femoral vein. Via this, a temporary pacing catheter was placed in the right ventricle. Thresholds were interrogated. Temporary pacing was performed through the rest of the procedure. At the end of the entire procedure, the TVP was removed. The sheath was removed and hemostasis was assured. Patient tolerated the procedure well without any acute complications. Procedure performed Transvenous temporary pacing TVP was removed and hemostasis was assured, after a new RV lead was placed
--- NOTE | 2023-02-10 12:55 | P.EPPROC ---
- EP Procedure Note Electrophysiology Procedure Note: Diagnosis Intermittent loss of capture secondary to RV lead fracture Procedure Patient was brought to the EP lab in a fasting state. Written informed consent was obtained prior to the procedure. Anesthesia was in attendance After placement of the TVP the left pectoral area was prepped and draped as a protocol. IV vancomycin was infused Left upper extremity venogram was performed with 50 mL IV dye injected in the left arm Mild stenosis of the subclavian vein noted Incision was made directly over the previous surgical site and carried down to the level of the generator Access was obtained in the axillary vein and the sheath was placed A Medtronic 58 cm RV lead, screw-in was implanted in the RV apex Medtronic model #5076, 58 cm in length Pacing impedance 1615 ohms. Pacing threshold initially 1 warted 0.4 ms that improved to 0.5 V at 0.4 ms The leads secured to the underlying pectoralis muscle and connected to the chronic dual-chamber pacemaker generator Atrial lead is functioning normally. P waves 2.4 mV. Patient was in sinus rhythm pacing impedance 475 ohms and pacing threshold 1.25 V at 0.4 ms The chronic, fractured RV lead was cut and Then secured to the pectoralis muscle The leads and generator (subfascial pocket Antibiotic pouch was placed in the pocket and the wound is closed in 3 layers and dressed per protocol Patient tolerated the procedure well without any acute complications Impression Successful in plantation of a new RV lead Chronic fractured RV lead was cut and capped and secured Left upper extremity venogram revealed a mildly stenotic left axillary/subclavian venous system TVP was removed at the end of the procedure
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
[2023-02-10] MEDS: METOPROLOL SUCCINATE (ER) 50 MG TAB.ER.24H PO SCH (14:20)
--- NOTE | 2023-02-10 16:32 | CA ---
Transthoracic Echo Report Name: Zain Chavez Age: 82 Gender: M : 1940 Exam Date: 02/10/2023 08:17 Exam Location: [place] [facility] Ht (in): 69 Wt (lb): 212 Ordering Physician: Jorge Olivera DO Attending/Referring Phys: [id number], Jarod Director Of Category Management Nathalie Ward RDCS Procedure CPT: Indications: weak Cardiac Hx: Technical Quality: Technically difficult study Contrast 1: Lumason Total Dose (mL): 4 Contrast 2: Total Dose (mL): MEASUREMENTS (Male / Female) Normal Values 2D ECHO LV Diastolic Diameter PLAX 4.7 cm 4.2 - 5.9 / 3.9 - 5.3 cm LV Systolic Diameter PLAX 3.2 cm IVS Diastolic Thickness 1.6 cm 0.6 - 1.0 / 0.6 - 0.9 cm LVPW Diastolic Thickness 1.7 cm 0.6 - 1.0 / 0.6 - 0.9 cm LV Relative Wall Thickness 0.7 RV Internal Dim ED PLAX 3.7 cm LA Volume 44.7 cm??? 18 - 58 / 22 - 52 cm??? M-MODE Aortic Root Diameter MM 3.7 cm LA Systolic Diameter MM 4.9 cm LA Ao Ratio MM 1.3 AV Cusp Separation MM 2.6 cm DOPPLER AV Peak Velocity 113.7 cm/s AV Peak Gradient 5.2 mmHg AV Mean Velocity 80.2 cm/s AV Mean Gradient 2.8 mmHg AV Velocity Time Integral 26.9 cm MV Area PHT 3.0 cm??? Mitral E Point Velocity 92.8 cm/s Mitral A Point Velocity 72.1 cm/s Mitral E to A Ratio 1.3 MV Deceleration Time 255.8 ms MV E' Velocity 4.9 cm/s Mitral E to MV E' Ratio 19.0 TR Peak Velocity 349.7 cm/s TR Peak Gradient 48.9 mmHg Right Ventricular Systolic Press 53.7 mmHg FINDINGS Left Ventricle Moderately increased left ventricular wall thickness. Left ventricular cavity size normal. Normal left ventricular systolic function with no obvious regional wall motion abnormalities. Left ventricular ejection fraction is estimated at 50-55 %. Abnormal (paradoxical) septal motion consistent with postoperative state. Right Ventricle Mild right ventricular dilatation. Moderate to severe pulmonary hypertension. Right Atrium Normal right atrial size. Catheter/pacemaker wire in the right atrial cavity. Left Atrium Normal left atrial size. Mitral Valve Structurally normal mitral valve. Mild mitral regurgitation. Aortic Valve No aortic valve stenosis or regurgitation. Tricuspid Valve Structurally normal tricuspid valve. [id number] tricuspid regurgitation. Pulmonic Valve Structurally normal pulmonic valve. Trace pulmonic regurgitation. Pericardium No pericardial effusion. Aorta Normal size aortic root and proximal ascending aorta. CONCLUSIONS LVH with preserved systolic function 100% paced in the right ventricle Previewed by: Dr. Jagdeep Orozco MD (Electronically Signed) Final Date: 10 Feb 2023 16:31
[2023-02-10] MEDS ORDERED: ASPIRIN 81 MG PO SCH (21:00)
[2023-02-10] MEDS ORDERED: NON FORMULARY DRUG (Rosuvastatin 20 MG Tablet) PO SCH (21:00)
[2023-02-10] MEDS ORDERED: MULTIVITAMINS, THERA 1 EACH TAB PO SCH (21:00)
[2023-02-11 02:18] VITALS: PULSE 60
[2023-02-11] MEDS ORDERED: LEVOTHYROXINE 25 MCG TAB PO SCH (06:30)
--- NOTE | 2023-02-11 07:13 | XR ---
EXAMINATION TYPE: XR chest 2V DATE OF EXAM: 02/11/2023 6:17 AM COMPARISON: Chest radiographs from 11/13/2021 TECHNIQUE: XR chest 2V Frontal and lateral views of the chest. CLINICAL INDICATION:Male, 82 years old with history of Lead placement check; FINDINGS: Lungs/Pleura: There is no evidence of pleural effusion, focal consolidation, or pneumothorax. Pulmonary vascularity: Unremarkable. Heart/mediastinum: Cardiomediastinal silhouette is enlarged and stable. Two lead cardiac conduction d evice overlying the left hemithorax with lead tips projecting over the right Ventricle and right atri um. There are 2 abandonment leads visualized. Musculoskeletal: No acute osseous pathology. Midline sternotomy wires and surgical clips project over the mediastinum. IMPRESSION: Cardiomegaly with new cardiac conduction device placed. There are at least 2 abandoned leads ends vis ualized in the left chest.
[2023-02-11 08:33] VITALS: BP 170/76; RESP 19; TEMP 99.1
[2023-02-11] MEDS ORDERED: lisinopriL 20 MG TAB PO SCH (09:00)
[2023-02-11] MEDS: METOPROLOL SUCCINATE (ER) 50 MG TAB.ER.24H PO SCH (09:18)
[2023-02-11] MEDS: APIXABAN 5 MG TAB PO SCH (09:19)
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
--- NOTE | 2023-02-11 13:05 | P.PN ---
Subjective Progress Note Date: 02/11/23 This is Dario Jenkins NP, I'm dictating on behalf of Dr. Orozco's H&P and A&P. Patient was interviewed and examined. Patient is a pleasant 82-year-old male who presented to the hospital after device interrogation demonstrated RV lead failure. Patient was found to be bradycardic despite pacemaker implantation and generator change. Patient underwent line placement yesterday in electrophysiology lab, with successful placement of new generator leads. This morning the patient reports that he is feeling good. The left chest dressing is clean, dry, and intact. The device was interrogated this morning, which demonstrates good capture and sense. Patient's heart rate is 60. GENERAL: Well-appearing, well-nourished and in no acute distress. NECK: Supple without JVD or thyromegaly. LUNGS: Breath sounds clear to auscultation bilaterally. Respiration equal and unlabored. No wheezes, rales or rhonchi. HEART: Regular rate and rhythm without murmurs, rubs or gallops. S1 and S2 heard. EXTREMITIES: Normal range of motion, no edema. No clubbing or cyanosis. Peripheral pulses intact and strong. VITALS: Temp 99.1, pulse 60, respirations 19, blood pressure 170/76, O2 saturation 91% on room air TELEMETRY: Atrial ventricular pacing LABS: Reviewed, no new labs since 02/09/2023 IMPRESSION: 1. RV lead fracture 2. Status post RV lead replacement 3. Bradycardia status post permanent pacemaker PLAN: Patient may be discharged home. Follow-up in the device clinic in one week. Increase lisinopril to 40 mg daily for hypertension. Objective - Vital Signs Vital signs: Vital Signs Temp 99.1 F 02/11/23 07:22 Pulse 60 02/11/23 07:22 Resp 19 02/11/23 07:22 BP 170/76 02/11/23 07:22 Pulse Ox 91 L 02/11/23 07:22 FiO2 Intake & Output 02/10/23 02/11/23 02/11/23 18:59 06:59 18:59 Intake Total 900 Balance 900 Intake: IV 900 Other: # Voids 1 1 - Labs CBC & Chem 7: 02/09/23 16:43 02/09/23 16:43
--- NOTE | 2023-02-16 20:54 | P.DS ---
Providers Date of admission: 02/09/23 18:27 Expected date of discharge: 02/11/23 Attending physician: Luisito Funes Consults: 02/09/23 18:27 Consult Physician Routine Consulting Provider: Jagdeep Orozco Consult Reason/Comments: known Do you want consulting provider notified?: Yes Primary care physician: Cynthia [facility] Hospital Course: 82-year-old male who presented to the hospital after device interrogation demonstrated RV lead failure. Patient was found to be bradycardic despite pacemaker implantation and generator change. Patient underwent line placement yesterday in electrophysiology lab, with successful placement of new generator leads. This morning the patient reports that he is feeling good. The left chest dressing is clean, dry, and intact. The device was interrogated this morning, which demonstrates good capture and sense. Patient's heart rate is 60. GENERAL: Well-appearing, well-nourished and in no acute distress. NECK: Supple without JVD or thyromegaly. LUNGS: Breath sounds clear to auscultation bilaterally. Respiration equal and unlabored. No wheezes, rales or rhonchi. HEART: Regular rate and rhythm without murmurs, rubs or gallops. S1 and S2 heard. EXTREMITIES: Normal range of motion, no edema. No clubbing or cyanosis. Peripheral pulses intact and strong. VITALS: Temp 99.1, pulse 60, respirations 19, blood pressure 170/76, O2 saturation 91% on room air TELEMETRY: Atrial ventricular pacing LABS: Reviewed, no new labs since 02/09/2023 IMPRESSION: 1. RV lead fracture 2. Status post RV lead replacement 3. Bradycardia status post permanent pacemaker PLAN: Patient may be discharged home. Follow-up in the device clinic in one week. Increase lisinopril to 40 mg daily for hypertension. Patient Condition at Discharge: Good Plan - Discharge Summary New Discharge Prescriptions: New Levothyroxine Sodium [Synthroid] 25 mcg PO DAILY@0630 30 Days #30 tab lisinopriL [Zestril] 40 mg PO DAILY 30 Days #30 tab Continue Metoprolol Succinate (ER) [Toprol XL] 50 mg PO DAILY Aspirin EC [Ecotrin Low Dose] 81 mg PO HS Rosuvastatin [Crestor] 20 mg PO HS Apixaban [Eliquis] 5 mg PO BID #180 tab Multivitamins, Thera [Multivitamin (formulary)] 1 tab PO HS Discontinued lisinopriL [Zestril] 30 mg PO HS Discharge Medication List Aspirin EC [Ecotrin Low Dose] 81 mg PO HS 11/07/21 [History] Metoprolol Succinate (ER) [Toprol XL] 50 mg PO DAILY 11/07/21 [History] Rosuvastatin [Crestor] 20 mg PO HS 01/29/23 [History] Apixaban [Eliquis] 5 mg PO BID #180 tab 02/02/23 [Rx] Multivitamins, Thera [Multivitamin (formulary)] 1 tab PO HS 02/09/23 [History] Levothyroxine Sodium [Synthroid] 25 mcg PO DAILY@0630 30 Days #30 tab 02/11/23 [Rx] lisinopriL [Zestril] 40 mg PO DAILY 30 Days #30 tab 02/11/23 [Rx] Follow up Appointment(s)/Referral(s): Jagdeep Orozco MD [STAFF PHYSICIAN] - 1 Week (1 Week follow up in Device clinic! Call for time!) Cynthia De Los Santos III, MD [Primary Care Provider] - 1-2 days Patient Instructions/Handouts: Pacemaker Generator Change (DC) Discharge Disposition: HOME SELF-CARE
== END 2023-02-11 12:45 | disposition home or self-care (01) ==
LOC: EC 14:28 → OBSVTOIN 18:27 → INTOOBSV 18:27 → 6NMEDSUR 18:27 → 2SICU 02-10 10:30 → 6NMEDSUR 02-10 12:54 → UNDODISIN 02-11 12:45
PROVIDERS: ADMIT Hospitalist; ATTEND Hospitalist
DX: T82.110A Breakdown (mechanical) of cardiac electrode, initial encounter (principal); Y71.1 Therapeutic (nonsurgical) and rehabilitative cardiovascular devices associated with adverse incidents; R00.1 Bradycardia, unspecified; I25.10 Atherosclerotic heart disease of native coronary artery without angina pectoris; I10 Essential (primary) hypertension; E78.5 Hyperlipidemia, unspecified; Z86.718 Personal history of other venous thrombosis and embolism; Z95.1 Presence of aortocoronary bypass graft; Z95.0 Presence of cardiac pacemaker; Z79.82 Long term (current) use of aspirin; Z79.899 Other long term (current) drug therapy; Z79.01 Long term (current) use of anticoagulants; Z88.8 Allergy status to other drugs, medicaments and biological substances
CPT/HCPCS: 96361 ×3; 96360; 99285; 36415; 94760; 93005; 33216; 84439; 80053; 83735; 84100; 84443; 84484; 85025; 85610; 85730; 71046; G0378 ×4; C8929; C1894; C1769 ×3; C1760; C1892; C1898; J2001 ×2; J2250; J3370; J0690 ×2; J3010 ×2; Q9950; Q9967; 93306